=== PATIENT | female | born 1995 | race Caucasian/White ===

== ENCOUNTER → 2020-01-24 | Outpatient (CLI) | payer OTHER ==
--- NOTE | 2020-01-24 17:52 | US ---
EXAMINATION TYPE: Transabdominal DATE OF EXAM: 01/24/2020 4:55 PM COMPARISON: NONE CLINICAL HISTORY: Z36 confirm dates. Confirm dates. EXAM PERFORMED: Transvaginal (TV) and Transabdominal (TA) EXAM MEASUREMENTS: GESTATIONAL AGE / DATING Dates by LMP: (9 weeks/2 days) EDC: 08/26/2020 Dates by First Scan: No previous this is first scan Dates by Current Scan for: (8 weeks/5 days) EDC: 08/30/2020 MATERNAL ANATOMY Uterus: 9.7 x 7.1 x 5.0 cm Right Ovary: 3.2 x 1.7 x 1.2 cm Left Ovary: 3.2 x 2.5 x 1.9 cm Post CDS / Adnexa: no free fluid Presence of free fluid: no Presence of corpus luteal cyst: left ovary= 1.8 x 2.0 x 1.3 cm Presence of subchorionic bleed: size = 0.8 x 1.6 x 0.6 cm GESTATION / SURVEY CRL: 2.1 cm (8 weeks/5 days) MSD: seen, not measured Yolk Sac (normal less than 6mm): 3.9 mm Heart Rate: 171 bpm Rhythm: Normal IUP: Viable IUP Date of LMP: 11/20/2019, [id number] Beta HcG (if available): Not available at this time Single live IUP measuring 8 weeks 5 days. Fluid visualized in cervical canal. Subchorionic bleed vi sualized. Left corpus luteal cyst seen. IMPRESSION: 1. Single viable of 8 weeks 5 days. There is a subchorionic hemorrhage measuring 1.6 cm. In cidental note made of small amount of free fluid in the cervical canal which is nonspecific and shoul d be correlated clinically.
== END | disposition home or self-care (01) ==
LOC: RADUSWWP 16:24
PROVIDERS: ATTEND Obstetrics & Gynecology
DX: Z36.87 Encounter for antenatal screening for uncertain dates (principal); Z3A.08 8 weeks gestation of pregnancy
CPT/HCPCS: 76801; 76817

== ENCOUNTER 2020-08-11 21:15 | Outpatient (CLI) | payer OTHER ==
[2020-08-12 00:28] VITALS: BP 124/64; PULSE 90; RESP 18; TEMP 98.2
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
== END 2020-08-11 23:40 | disposition home or self-care (01) ==
LOC: FBPOP 21:15
PROVIDERS: ATTEND Obstetrics & Gynecology
DX: O75.89 Other specified complications of labor and delivery (principal); Z3A.38 38 weeks gestation of pregnancy
CPT/HCPCS: 59025; 86900; 86901; 86850; G0463; 99213

== ENCOUNTER 2020-08-27 08:42 | Outpatient (CLI) | payer OTHER ==
[2020-08-27 09:36] LABS: Amorphous Sediment,Urine Rare /hpf; Appearance,Urine Turbid (Clear); Bacteria,Urine Rare /hpf; Bilirubin,Urine Negative (Negative); Blood,Urine Negative (Negative); Color,Urine Yellow; Glucose,Urine (UA) Negative (Negative); Ketones,Urine Negative (Negative); Leukocyte Esterase,Urine Negative (Negative); Mucus,Urine Rare /hpf; Nitrite,Urine Negative (Negative); Protein,Urine Negative (Negative); RBC,Urine 1 /hpf (0-5); Specific Gravity,Urine 1.014 (1.001-1.035); Squamous Epithelial Cell,Urine 3 /hpf (0-4); Urobilinogen,Urine <2.0 mg/dL (<2.0); WBC,Urine 2 /hpf (0-5)
[2020-08-27 11:08] LABS: Basophils % (A) 0 %; Eosinophils % (A) 0 %; HCT 40.1 % (34.0-46.0); HGB 13.2 gm/dL (11.4-16.0); Lymphocytes # (A) 1.5 k/uL (1.0-4.8); Lymphocytes % (A) 12 %; MCH 28.6 pg (25.0-35.0); MCV 86.8 fL (80.0-100.0); Mean Platelet Volume 8.1; Monocytes # (A) 0.6 k/uL (0-1.0); Monocytes % (A) 5 %; Neutrophils # (A) 10.4 k/uL (1.3-7.7); Neutrophils % (A) 81 %; Platelet Count 246 k/uL (150-450); RBC 4.62 m/uL (3.80-5.40); RDW 13.9 % (11.5-15.5); WBC 12.7 k/uL (3.8-10.6)
[2020-08-27 11:21] LABS: Creatinine,Urine Random 102.1 mg/dL; Creatinine,Urine Random 104.2 mg/dL; Protein/Creatinine Ratio,Urine 0.088
[2020-08-27 11:23] LABS: ALT 40 U/L (4-34); AST 72 U/L (14-36); African American GFR (CKD) >90 (>60 ml/min/1.73 sqM); Blood Urea Nitrogen 7 mg/dL (7-17); LDH 469 U/L (313-618); Non-African American GFR(CKD) >90 (>60 ml/min/1.73 sqM); Uric Acid 3.8 mg/dL (3.7-7.4)
[2020-08-27 13:47] VITALS: BP 142/77; PULSE 87; RESP 16; TEMP 96.4
--- NOTE | 2020-08-28 09:08 | P.MSEPDOC ---
Presenting Problems - Arrival Data Date of Arrival on Unit: 08/27/20 Time of Arrival on Unit: 08:42 Mode of Transport: Ambulatory - Complaint OB-Reason for Admission/Chief Complaint: Pain, Unknown Comment: Abdominal pain. Medical History - Information : 2 Para: 0 Term: 0 : 0 Abortions: Spontaneous or Elective: 0 Number of Living Children: 0 - Gestational Age Gestational Age by ARIADNE (wks/days): 40 Weeks and 0 Days Review of Systems - Review of Systems Constitutional: No problems Breast: No problems ENT: No problems Cardiovascular: No problems Respiratory: No problems Gastrointestinal: No problems Genitourinary: No problems Musculoskeletal: No problems Neurological: No problems Skin: No problems Vital Signs - Temperature Temperature: 96.4 F Temperature Source: Temporal Artery Scan - Pulse Right Brachial Pulse Rate: 87 Pulse Assessment Method: Automatic Cuff - Respirations Respiratory Rate: 16 Oxygen Delivery Method: Room Air O2 Sat by Pulse Oximetry: 97 - Blood Pressure Right Arm Blood Pressure: 142/77 Blood Pressure Mean: 98 Blood Pressure Source: Automatic Cuff Medical Screen Scoring - Cervical Exam Dilation (cm): 2 Effacement (%): 50 Station: -2 Membranes: Intact - Assessment - Baby A Baseline FHR: 135 Heart Rate - NICHD Category: Category I (Normal) NST: Reactive Physician Notification - Physician Notified Physician Notified Date: 08/27/20 Physician Notified Time: 13:02 Physician: Caroline Phipps Order Received: Yes - Notification Comment Comment: Dr. Phipps in room again. Plan is for pt to go to office tomorrow for a BP check. and NST then plan for IOL on monday Maternal Triage Index - Non-Urgent/Priority 4 Non-Urgent Priority 4: Yes Criteria Met for Priority 4: Abdominal pain. Disposition - Disposition OB Disposition: Discharge to home Discharge Date: 08/27/20 Discharge Time: 13:14 I agree with the RN Medical Screening Exam: Yes Physician's MSE Comment: I discussed diagnosis of gestational hypertension with pt. and significant other. Advised that standard of care is to deliver if over 37 weeks. Advised that gestational hypertension can progress into preeclampsia or eclampsia sometimes fairly quickly. Pt. state the RUQ pain she came in with is currently gone. Pt. doesn't want to be induced if she doesn't need to. Advised that she does need to be delivered with this diagnosis. Offered to admit her today, observe overnight and induce in the morning, but patient declined. She has a to go to on Monday. She is willing to come into the office tomorrow for NST and BP check and agrees to be induced on Monday. She is advised to return to the hospital if she has any headache, blurred vision, epigastric pain, decreased movement, ROM, bleeding, or any other concern. Case reviewed; plan agreed upon as documented in EMR&OBIX.: Yes Diagnosis: GESTATIONAL HTN W/O SIGNIFICANT PROTEINURIA, THIRD TRIMESTER
== END 2020-08-27 13:14 | disposition home or self-care (01) ==
LOC: FBPOP 08:42 → UNDOADMIN 09:51 → 4FBP 09:51 → FBPOP 13:14
PROVIDERS: ATTEND Obstetrics & Gynecology
DX: O13.3 Gestational [pregnancy-induced] hypertension without significant proteinuria, third trimester (principal); Z3A.00 Weeks of gestation of pregnancy not specified
CPT/HCPCS: 59025; 82570; 84156; 82565; 83615; 84450; 84460; 84520; 84550; 85025; 81001; G0463; 99215

== ENCOUNTER 2020-08-30 06:00 | Inpatient (IN) | payer OTHER ==
--- NOTE | 2020-08-29 15:53 | P.HPOB ---
History of Present Illness H&P Date: 08/29/20 Chief Complaint: Gestational hypertension This is a 25 y.o. female, 2, para 0, with an estimated date of confinement of 08/26/2020, estimated gestational age of 40-4/7 weeks, who presents for induction of labor due to gestational hypertension. She was seen in triage on 08/27/2020 with complaints of right upper quadrant and epigastric pain and was found to have mildly elevated blood pressures. Her blood pressure did normalize with rest and her pain went away. Her urine protein and P/C ratios were negative, however, her liver enzymes were slightly elevated. I recommended induction at that time or at least the next day, but she declined. She said she would come to the office on 08/28/2020 for NST and blood pressure check, but did not show. She did consent to induction on 08/30/2020 when she was seen in triage. She has been feeling good movement and does feel irregular contractions. labs: Hepatitis B surface antigen-neg RPR-NR Rubella-immune Blood type-B neg Antibody screen-neg HIV-NR Hemoglobin-15.7 Random glucose-87 Quad screen-neg 1 hr. GTT-142, 3 hr. 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 Works as [employer]. Review of Systems Constitutional: Denies chills, Denies fever Eyes: denies blurred vision, denies pain Ears, nose, mouth and throat: Denies headache, Denies sore throat Cardiovascular: Denies chest pain, Denies shortness of breath Gastrointestinal: Reports abdominal pain (RUQ, epigastric, contractions) Genitourinary: Reports pelvic pain, Reports Musculoskeletal: Reports low back pain Integumentary: Denies pruritus, Denies rash Neurological: Denies numbness, Denies weakness Past Medical History Past Medical History: No Reported History History of Any Multi-Drug Resistant Organisms: None Reported Past Surgical History: No Surgical Hx Reported Past Anesthesia/Blood Transfusion Reactions: No Reported Reaction Past Psychological History: No Psychological Hx Reported Smoking Status: Never smoker Past Alcohol Use History: None Reported Past Drug Use History: Marijuana (None since ) - Past Family History Father Family Medical History: AFIB Medications and Allergies Home Medications Medication Instructions Recorded Confirmed Type No Known Home Medications 08/27/20 08/27/20 History Allergies Allergy/AdvReac Type Severity Reaction Status Date / Time venom-honey bee Allergy Swelling Verified 08/27/20 08:56 [bee venom (honey bee)] Exam Osteopathic Statement: *. No significant issues noted on an osteopathic structural exam other than those noted in the History and Physical/Consult. HEENT: within normal limits Heart: regular rate and rhythm Lungs: clear to auscultation bilaterally Abdomen: , currently non-tender heart tones: category I Contractions: irregular Cervix: 2 cm/80%/-2 Extremities: neg. Harvey's, tr. edema Assessment and Plan (1) 40 weeks gestation of Status: Acute Code(s): Z3A.40 - 40 WEEKS GESTATION OF SNOMED Code(s): 02104067 (2) Gestational [-induced] hypertension without significant proteinuria, third trimester Status: Acute Code(s): O13.3 - GESTATIONAL HTN W/O SIGNIFICANT PROTEINURIA, THIRD TRIMESTER SNOMED Code(s): 11049699 Plan: Proceed with oxytocin induction of labor. Will monitor blood pressures. Expectant management. Epidural anesthesia if desired.
[2020-08-30] MEDS ORDERED: CARBOPROST TROMETHAMINE 250 MCG/ML 1 ML AMP IM PRN (06:24)
[2020-08-30] MEDS ORDERED: LIDOCAINE 1% (10MG/ML) FOR IV START INTRADERMA PRN (06:24)
[2020-08-30] MEDS ORDERED: OXYTOCIN 30 UNITS/500 ML NS 30 UNIT in SALINE 1 500ML.BAG IV SCH ×2 (06:24→17:31)
[2020-08-30] MEDS ORDERED: LIDOCAINE 0.5% (PF) 5 MG/ML (50 ML SDV) SQ PRN (06:24)
[2020-08-30] MEDS ORDERED: OXYTOCIN 10 UNIT/ML 1 ML VIAL IM PRN (06:24)
[2020-08-30] MEDS ORDERED: TERBUTALINE 1 MG/ML VIAL SQ PRN (06:24)
[2020-08-30] MEDS ORDERED: METHYLERGONOVINE 0.2 MG/ML 1 ML AMP IM PRN (06:24)
[2020-08-30] MEDS: LACTATED RINGERS 1,000 ML IV SCH ×3 (06:40→16:01)
[2020-08-30 07:02] LABS: Basophils % (A) 0 %; Eosinophils # (A) 0.1 k/uL (0-0.7); Eosinophils % (A) 1 %; HCT 38.9 % (34.0-46.0); HGB 12.9 gm/dL (11.4-16.0); Lymphocytes # (A) 2.5 k/uL (1.0-4.8); Lymphocytes % (A) 20 %; MCH 28.7 pg (25.0-35.0); MCHC 33.1 g/dL (31.0-37.0); MCV 86.8 fL (80.0-100.0); Mean Platelet Volume 8.3; Monocytes # (A) 0.8 k/uL (0-1.0); Monocytes % (A) 7 %; Neutrophils # (A) 8.9 k/uL (1.3-7.7); Neutrophils % (A) 71 %; Platelet Count 247 k/uL (150-450); RBC 4.48 m/uL (3.80-5.40); WBC 12.6 k/uL (3.8-10.6)
[2020-08-30 08:27] LABS: Glucose,Urine (UA) Negative (Negative); Ketones,Urine Trace (Negative); Protein,Urine Trace (Negative)
[2020-08-30 10:19] LABS: Amphetamine Screen,Urine Not Detected (NotDetected); Barbiturate Screen,Urine Not Detected (NotDetected); Benzodiazepines Screen,Urine Not Detected (NotDetected); Cocaine Screen,Urine Not Detected (NotDetected); Methadone Screen, Urine Not Detected (NotDetected); Opiate Screen,Urine Not Detected (NotDetected); Oxycodone Screen, Urine Not Detected (NotDetected); Phencyclidine Screen,Urine Not Detected (NotDetected); Tricyclic Antidepressant,Urine Not Detected (NotDetected); Urn Cannabinoid Scrn Not Detected (NotDetected)
[2020-08-30] MEDS: BUTORPHANOL 1 MG/ML 1 ML VIAL IV PRN ×2 (11:11→13:02)
[2020-08-30] MEDS ORDERED: SODIUM CHLORIDE 0.9% 100 ML BAG ONE (13:23)
[2020-08-30] MEDS ORDERED: ROPIVACAINE 5MG/ML 20ML VIAL ONE (13:23)
[2020-08-30] MEDS ORDERED: fentaNYL (PF) 50 MCG/ML 5 ML AMP ONE (13:23)
[2020-08-30] MEDS ORDERED: ACETAMINOPHEN TAB 325 MG TAB PO PRN (17:31)
[2020-08-30] MEDS ORDERED: BENZOCAINE/MENTHOL SPRAY 1 GM/SPRAY AEROSOL TOPICAL PRN (17:31)
[2020-08-30] MEDS ORDERED: diphenhydrAMINE 50 MG CAP PO PRN (17:31)
[2020-08-30] MEDS ORDERED: HYDROCORTISONE 2.5% RECTAL CREAM 30 GM TUBE RECTAL PRN (17:31)
[2020-08-30] MEDS ORDERED: diphenhydrAMINE 50 MG/ML 1 ML VIAL IVP PRN ×2 (17:31)
[2020-08-30] MEDS ORDERED: SIMETHICONE 80 MG CHEWABLE PO PRN (17:31)
[2020-08-30] MEDS ORDERED: ZOLPIDEM 5 MG TAB PO PRN (17:31)
[2020-08-30] MEDS ORDERED: diphenhydrAMINE 25 MG CAP PO PRN (17:31)
[2020-08-30] MEDS ORDERED: LANOLIN CREAM 5 GM TUBE TOPICAL PRN (17:31)
--- NOTE | 2020-08-30 17:31 | P.PROBDLV ---
Vaginal Delivery Note - . Vaginal Delivery Note: The patient progressed to complete dilation after oxytocin induction of labor and artificial rupture of membranes with clear fluid noted. She did receive several doses of Stadol and then epidural. Once reaching complete, she began pushing. 's head came to a crown. With one further push, the 's head delivered across the perineum followed by the anterior shoulder. The was then placed on mother's abdomen. Nose and mouth were bulb suctioned. Cord was allowed to stop pulsating before it was clamped. Cord was clamped and cut. Infant was then allowed to be skin to skin with mother. A viable male was noted with scores of 8 at 1 minute and 9 at 5 minutes and infant weight is pending at this time. Placenta delivered shortly thereafter, intact, with a three-vessel cord. Uterus contracted fairly well after oxytocin was given and uterine massage was carried out. Inspection of the perineum revealed a second-degree perineal laceration. This area was anesthetized with 1% lidocaine and then sutured with 3-0 and 2-0 Vicryl suture in the usual multilayer fashion. Estimated blood loss was approximately 100 mL's. Both mother and are in stable condition.
[2020-08-30] MEDS: IBUPROFEN 600 MG TAB PO PRN (22:42)
[2020-08-30] MEDS: SENNOSIDES-DOCUSATE SODIUM 1 EACH TAB PO SCH (22:42)
[2020-08-30] MEDS ORDERED: Rhogam IMMUNE GLOBULIN 1,500 UNIT/1 ML IM ONE (22:44)
[2020-08-31 06:51] LABS: Basophils % (A) 0 %; Eosinophils # (A) 0.1 k/uL (0-0.7); Eosinophils % (A) 1 %; HCT 35.7 % (34.0-46.0); Lymphocytes % (A) 19 %; MCH 29.5 pg (25.0-35.0); MCHC 33.6 g/dL (31.0-37.0); MCV 87.8 fL (80.0-100.0); Mean Platelet Volume 8.4; Monocytes # (A) 0.8 k/uL (0-1.0); Monocytes % (A) 7 %; Neutrophils # (A) 7.7 k/uL (1.3-7.7); Neutrophils % (A) 71 %; Platelet Count 209 k/uL (150-450); RBC 4.07 m/uL (3.80-5.40); WBC 10.8 k/uL (3.8-10.6)
[2020-08-31 07:16] LABS: ALT 18 U/L (4-34); AST 19 U/L (14-36)
[2020-08-31] MEDS: IBUPROFEN 600 MG TAB PO PRN ×2 (08:29→14:26)
[2020-08-31] MEDS: SENNOSIDES-DOCUSATE SODIUM 1 EACH TAB PO SCH (08:29)
[2020-08-31 08:44] VITALS: RESP 16
--- NOTE | 2020-08-31 08:59 | P.DS ---
Providers Date of admission: 08/30/20 06:07 Expected date of discharge: 08/31/20 Attending physician: Caroline Phipps Primary care physician: Stated None - Discharge Diagnosis(es) (1) 40 weeks gestation of Current Visit: No Status: Acute (2) Gestational [-induced] hypertension without significant proteinuria, third trimester Current Visit: No Status: Acute Hospital Course: This is a [age] female 2 para 0 at 40-4/7 weeks who presented for induction of labor secondary to gestational hypertension and slightly elevated liver enzymes. She underwent oxytocin induction of labor and delivered vaginally a viable male infant with scores of 8 at 1 minute and 9 at 5 minutes and infant weight of 8 lbs. 9 oz. Her course has been essentially uncomplicated. Lochia is decreasing. She does complain of hemorrhoids. She is working on breast-feeding. Vital signs are stable. Abdomen is soft with fundus firm and nontender. Extremities show negative Homans. Impression is status post vaginal delivery day #1. Her liver enzymes are back to normal today. She will be discharged home today. Routine instructions are given. She will be given a prescription for ibuprofen and a breast pump. She is advised follow-up in the office in 6 weeks for check. She is advised to call the office if she has any further questions or concerns prior to her appointment time. Procedures: Oxytocin induction of labor Spontaneous vaginal delivery of a viable male infant on 08/30/2020 Patient Condition at Discharge: Stable Plan - Discharge Summary New Discharge Prescriptions: New Ibuprofen [Motrin] 600 mg PO Q6HR PRN #60 tab PRN Reason: Mild Pain (Scale 1 To 3) Discharge Medication List Ibuprofen [Motrin] 600 mg PO Q6HR PRN #60 tab 08/31/20 [Rx] Follow up Appointment(s)/Referral(s): Caroline Phipps DO [Doctor of Osteopathic Medicine] - 1 Week Activity/Diet/Wound Care/Special Instructions: Instructions 1. Do not begin any exercise program for 3 weeks. 2. Do not resume sexual relations for 3 weeks or longer if uncomfortable. 3. You may take tub baths or showers at any time. 4. You may use tampons if desired after 3 weeks. 5. Keep the area of episiotomy (stitches) clean and dry. 6. If you are not nursing, wear a good fitting, supportive bra during the day and limit fluid intake for at least 1 week to prevent breast engorgement. 7. Call the office, [phone], within the next week to make appointment for your 6 week checkup if it has not already been made. 8. Report any of the following occurrences to the doctor promptly: a. Heavy, excessive bleeding b. Chills, fever c. Burning or frequency of urination d. Pain or redness and breasts if nursing e. Increasing pain or swelling in episiotomy (stitches). In addition to the above instructions, the following additional should be followed: 1. No heavy lifting or straining (exercising) until after 6 week checkup. 2. Keep abdominal incision clean and dry: You may wear a dressing if more comfortable. 3. Make office appointment for 10 days after going home or as instructed by her doctor. Discharge Disposition: HOME SELF-CARE
[2020-08-31 16:26] VITALS: BP 124/82; PULSE 79; TEMP 97.6
== END 2020-08-31 17:30 | disposition home or self-care (01) | DRG 807 ==
LOC: 4FBP 06:07
PROVIDERS: ADMIT Obstetrics & Gynecology; ATTEND Obstetrics & Gynecology
PROC: 10E0XZZ Delivery of Products of Conception, External Approach (ICD-10-PCS; principal; 2020-08-30)
PROC: 0KQM0ZZ Repair Perineum Muscle, Open Approach (ICD-10-PCS; 2020-08-30)
DX: O13.4 Gestational [pregnancy-induced] hypertension without significant proteinuria, complicating childbirth (principal); Z37.0 Single live birth; O22.43 Hemorrhoids in pregnancy, third trimester; O70.1 Second degree perineal laceration during delivery; Z3A.40 40 weeks gestation of pregnancy
CPT/HCPCS: 80306; 81003; 84450; 84460; 85025; 85461; 86850; 86900; 86901

== ENCOUNTER 2020-09-02 00:55 | Observation (INO) | payer OTHER ==
[2020-09-02] MEDS ORDERED: ACETAMINOPHEN TAB 325 MG TAB PO PRN (07:55)
[2020-09-02] MEDS ORDERED: NALOXONE 0.4 MG/ML 1 ML VIAL IV PRN (07:55)
[2020-09-02] MEDS ORDERED: HYDROmorphone 1 MG/ML 1 ML SYRINGE IVP PRN (07:55)
[2020-09-02] MEDS ORDERED: SODIUM CHLORIDE 0.9% 1,000 ML IV SCH (08:00)
[2020-09-02 08:19] LABS: ALT 30 U/L (4-34); AST 60 U/L (14-36); African American GFR (CKD) >90 (>60 ml/min/1.73 sqM); Albumin 3.3 g/dL (3.5-5.0); Albumin/Globulin Ratio 1.2; Alkaline Phosphatase 209 U/L (38-126); Amylase 121 U/L (30-110); Anion Gap 8 mmol/L; Blood Urea Nitrogen 7 mg/dL (7-17); Calcium 9.2 mg/dL (8.4-10.2); Carbon Dioxide 26 mmol/L (22-30); Chloride 104 mmol/L (98-107); Globulin 2.7 g/dL; Glucose 107 mg/dL (74-99); Magnesium 1.8 mg/dL (1.6-2.3); Non-African American GFR(CKD) >90 (>60 ml/min/1.73 sqM); Potassium 4.1 mmol/L (3.5-5.1); Sodium 138 mmol/L (137-145); Total Bilirubin 0.9 mg/dL (0.2-1.3)
[2020-09-02 08:20] LABS: Lipase 2443 U/L (23-300)
[2020-09-02 08:29] LABS: Basophils % (A) 0 %; Eosinophils # (A) 0.2 k/uL (0-0.7); Eosinophils % (A) 2 %; HCT 40.6 % (34.0-46.0); HGB 13.3 gm/dL (11.4-16.0); Lymphocytes # (A) 1.8 k/uL (1.0-4.8); Lymphocytes % (A) 15 %; MCH 28.6 pg (25.0-35.0); MCHC 32.7 g/dL (31.0-37.0); MCV 87.6 fL (80.0-100.0); Mean Platelet Volume 7.3; Monocytes # (A) 0.8 k/uL (0-1.0); Monocytes % (A) 7 %; Neutrophils # (A) 8.8 k/uL (1.3-7.7); Neutrophils % (A) 74 %; Platelet Count 265 k/uL (150-450); RBC 4.64 m/uL (3.80-5.40); RDW 14.6 % (11.5-15.5); WBC 11.9 k/uL (3.8-10.6)
[2020-09-02 08:34] LABS: Appearance,Urine Cloudy (Clear); Bacteria,Urine Rare /hpf; Bilirubin,Urine Negative (Negative); Blood,Urine Large (Negative); Color,Urine Yellow; Glucose,Urine (UA) Negative (Negative); Ketones,Urine Negative (Negative); Leukocyte Esterase,Urine Large (Negative); Mucus,Urine Few /hpf; Nitrite,Urine Negative (Negative); PH, Urine 5.5 (5.0-8.0); Protein,Urine Trace (Negative); RBC,Urine 9 /hpf (0-5); Specific Gravity,Urine 1.021 (1.001-1.035); Squamous Epithelial Cell,Urine 7 /hpf (0-4); WBC,Urine 61 /hpf (0-5)
[2020-09-02 08:49] VITALS: RESP 16
--- NOTE | 2020-09-02 13:42 | CT ---
EXAM: CT Abdomen and Pelvis Without Intravenous Contrast CLINICAL HISTORY: Pt had vaginal delivery two days ago now having abdominal pain. TECHNIQUE: Axial computed tomography images of the abdomen and pelvis without intravenous contrast. CTDI is 29.07 mGy and DLP is 1690.2 mGy-cm. This CT exam was performed using one or more of the following dose reduction techniques: automated exposure control, adjustment of the mA and/or kV according to patient size, and/or use of iterative reconstruction technique. COMPARISON: No relevant prior studies available. FINDINGS: The lung bases are clear. Liver, gallbladder, spleen, adrenal glands, and pancreas are within normal limits. No hydronephrosis however, there is mild fullness of the bilateral collecting systems, which is to be expected in the recent period. Normal urinary bladder. There are blood products within the endometrial cavity, which may be expected in the setting of a recent vaginal delivery. Dedicated pelvic ultrasound is recommended to evaluate for vascular flow and exclude the possibility of retained products of conception. No acute diverticulitis. No small bowel obstruction. No free intraperitoneal air. Normal appendix. IMPRESSION: Blood products within the endometrial cavity, which may be expected in the setting of a recent vaginal delivery. Dedicated pelvic ultrasound is recommended to evaluate for vascular flow and exclude the possibility of retained products of conception.
--- NOTE | 2020-09-02 23:19 | P.HPIM ---
History of Present Illness H&P Date: 09/02/20 The patient was seen and evaluated in the ED on 09/02 @ 2:30 am. Delayed charting due to down-time. Please refer to paper chart. The patient is a 25-year-old female with no known PMH, 3 days with a vaginal delivery who presented to the emergency room with complaints of right upper quadrant epigastric discomfort. The patient reports that she initially started feeling right upper quadrant discomfort at 16 weeks gestation. Her subsystems engineer advised her that it was likely the baby kicking. She reported that the pain was achy, and intermittent, without any association with food. She reports that her pain would occur only a handful of times a week and she did not think much of it. She reports however that the pain acutely worsened roughly 10 days prior to presentation, and a week prior to her delivery. She reports being seen at her subsystems engineer's office and undergoing blood work which had revealed elevated liver enzymes. She was advised to undergo induced labor At that timewhich she declined and underwent a regular labor and delivery this past Monday, which was uneventful as per the patient. Patient reports that soon after her delivery, she continued having 9 out of 10 right upper quadrant abdominal discomfort, aching in nature, with radiation to the epigastric region and her back, which prompted her to come to the emergency room. At time of interview, the patient notes that her pain had improved significantly without intervention, currently at a 3 out of 10. she notes that her pain continues to be intermittent, with no association to food, occurring multiple times a day, lasting for minutes to hours at a time. She denied experiencing fever, chills, nausea, vomiting, diarrhea. Also denied cough, chest discomfort, shortness of breath. He denied headaches, weakness, numbness, tingling, dizziness. She underwent an extensive evaluation in the emergency room with laboratory evaluation showing lipase 2443, WBC count 11.9, hemoglobin 13.3, platelets 265, sodium 138, potassium 4.1, chloride 104, CO2 26, BUN 7, creatinine 0.56, AST 60, ALT 30, magnesium 1.8, alk phos 209, total bilirubin 0.9, and glucose 107. Review of systems: Pertinent positives and negatives as discussed in HPI, a complete review of systems was performed and all other systems are negative. Physical examination: General: non toxic, no distress, appears at stated age, morbidly obese Derm: no unusual rashes/lesions no unusual ecchymoses, warm, dry Head: atraumatic, normocephalic, symmetric Eyes: EOMI, no lid lag, anicteric sclera, pupils equal round reactive to light ENT: Nose and ears atraumatic, no thrush, no pharyngeal erythema Neck: No thyromegaly, no cervical lymphadenopathy, trachea midline, supple Mouth: no lip lesion, mucus membranes moist Cardiovascular: S1S2 reg, no murmur, positive posterior tibial pulse bilateral, no edema, capillary refill less than 2 seconds Lungs: CTA bilateral, no rhonchi, no rales , no accessory muscle use Abdominal: soft, nontender to palpation, no guarding, no appreciable organomegaly, normal bowel sounds Ext: no gross muscle atrophy, muscle strength 5 out of 5 in all 4 extremities grossly, no contractures, Neuro: CN II-XI grossly intact, light touch intact all 4 extremities, finger to nose within normal limits, Psych: Alert, oriented, appropriate affect Assessment/plan Acute pancreatitis, suspected secondary to gallstones -Continue with IV fluids -Pain control -Nothing by mouth for now -GI consult DVT prophylaxis -IPCD's The patient is admitted with an anticipated less than 2 midnight stay for evaluation of acute pancreatitis CODE STATUS: full code Discussed with: patient, Anticipated discharge date: in a.m. Anticipated discharge place: home Past Medical History Past Medical History: No Reported History Additional Past Medical History / Comment(s): Pancreatitis- 09/02/20. vagnial - 08/31/20 History of Any Multi-Drug Resistant Organisms: None Reported Past Surgical History: No Surgical Hx Reported, Adenoidectomy, Tonsillectomy Additional Past Surgical History / Comment(s): Tubs put in ears as an Past Anesthesia/Blood Transfusion Reactions: No Reported Reaction Smoking Status: Never smoker - Past Family History Father Family Medical History: AFIB Additional Family Medical History / Comment(s): Grandma has diabetes and hx of brain tumor Medications and Allergies Home Medications Medication Instructions Recorded Confirmed Type Acetaminophen Tab [Tylenol] 650 mg PO Q6HR PRN tab 09/02/20 Rx Pantoprazole [Protonix] 40 mg PO DAILY #30 tablet. 09/02/20 Rx Allergies Allergy/AdvReac Type Severity Reaction Status Date / Time venom-honey bee Allergy Swelling Verified 09/02/20 08:06 [bee venom (honey bee)] Physical Exam Vitals: Vital Signs Resp 09/02/20 08:00 16 Intake and Output 09/02/20 09/02/20 09/03/20 14:59 22:59 06:59 Other: Weight 139.706 kg Results CBC & Chem 7: 09/02/20 01:27 09/02/20 01:27 Labs: Abnormal Lab Results - Last 24 Hours (Table) 09/02/20 09/02/20 09/02/20 Range/Units 01:27 01:27 01:27 WBC 11.9 H (3.8-10.6) k/uL Neutrophils # 8.8 H (1.3-7.7) k/uL Glucose 107 H (74-99) mg/dL AST 60 H (14-36) U/L Alkaline Phosphatase 209 H (38-126) U/L Total Protein 6.0 L (6.3-8.2) g/dL Albumin 3.3 L (3.5-5.0) g/dL Amylase 121 H (30-110) U/L Lipase 2443 H (23-300) U/L Urine Appearance Cloudy H (Clear) Urine Protein Trace H (Negative) Urine Blood Large H (Negative) Ur Leukocyte Esterase Large H (Negative) Urine RBC 9 H (0-5) /hpf Urine WBC 61 H (0-5) /hpf Ur Squamous Epith Cells 7 H (0-4) /hpf Urine Bacteria Rare H (None) /hpf Urine Mucus Few H (None) /hpf Thrombosis Risk Factor Assmnt - Choose All That Apply Any of the Below Risk Factors Present?: Yes Each Factor Represents 1 point: Obesity (BMI >25) Other Risk Factors: No Other congenital or acquired thrombophilia - If yes, enter type in comment: No Thrombosis Risk Factor Assessment Total Risk Factor Score: 1 Thrombosis Risk Factor Assessment Level: Low Risk
--- NOTE | 2020-09-03 11:23 | P.DS ---
Providers Date of admission: 09/02/20 02:54 Expected date of discharge: 09/03/20 Attending physician: Graciela Urias MD Primary care physician: Stated None Hospital Course: The patient is a 25-year-old female with no known PMH, 3 days with a vaginal delivery who presented to the emergency room with complaints of right upper quadrant epigastric discomfort. At time of initial interview, the patient notes that her pain had improved significantly without intervention, currently at a 3 out of 10. She underwent an extensive evaluation in the emergency room with laboratory evaluation showing lipase 2443, WBC count 11.9, hemoglobin 13.3, platelets 265, sodium 138, potassium 4.1, chloride 104, CO2 26, BUN 7, creatinine 0.56, AST 60, ALT 30, magnesium 1.8, alk phos 209, total bilirubin 0.9, and glucose 107. Acute pancreatitis Retained Products of Conception -Patient was started on IVF, but quickly tolerated regular diet without any further pain or nausea. CT A/P showed no evidence of pancreatitis, but did demonstrate findings of possible retained products of conception s/p vaginal delivery. Patient expressed wish to go home given she no longer felt symptomatic and was discharged after one night. She was instructed to follow up with her mortgage manager physician within a week to follow up regarding CT imaging findings. Assessment: Gen: awake, alert HEENT: normocephalic, atraumatic, good hearing acuity, moist mucous membranes Resp: good air exchange, breathing comfortably with no accessory muscle use CVS: good distal perfusion x 4, GI: soft, NTTP, ND : no SPT, no CVAT, lua catheter not present MSK: no pitting edema, no clubbing Neuro: non-focal, moving all extremities Psych: cooperative, euthymic mood Plan - Discharge Summary New Discharge Prescriptions: New Pantoprazole [Protonix] 40 mg PO DAILY #30 tablet. Acetaminophen Tab [Tylenol] 650 mg PO Q6HR PRN tab PRN Reason: Mild Pain Or Fever > 100.5 Discontinued Ibuprofen [Motrin] 600 mg PO Q6HR PRN #60 tab PRN Reason: Mild Pain (Scale 1 To 3) Docusate [Colace] 100 mg PO DAILY Discharge Medication List Acetaminophen Tab [Tylenol] 650 mg PO Q6HR PRN tab 09/02/20 [Rx] Pantoprazole [Protonix] 40 mg PO DAILY #30 tablet. 09/02/20 [Rx] Follow up Appointment(s)/Referral(s): Caroline Phipps DO [Doctor of Osteopathic Medicine] - 1 Week Patient Instructions/Handouts: Pancreatitis (DC), Low Fat Diet (DC), Mediterranean Diet (DC) Activity/Diet/Wound Care/Special Instructions: Need to follow up with Production Staff Worker for retained endometrial blood products on CT scan of abdomen/pelvis within 1 week. Discharge Disposition: HOME SELF-CARE
== END 2020-09-02 12:13 | disposition home or self-care (01) ==
LOC: EC 00:55 → 6NMEDSUR 02:54
PROVIDERS: ADMIT Internal Medicine; ATTEND Internal Medicine
DX: K85.90 Acute pancreatitis without necrosis or infection, unspecified (principal); R74.8 Abnormal levels of other serum enzymes; E66.01 Morbid (severe) obesity due to excess calories; Z68.25 Body mass index [BMI] 25.0-25.9, adult; Z79.899 Other long term (current) drug therapy; Z91.030 Bee allergy status; Z83.3 Family history of diabetes mellitus; Z82.49 Family history of ischemic heart disease and other diseases of the circulatory system
CPT/HCPCS: 99285; 80053; 82150; 83605; 83690; 83735; 85025; 81001; 74176; G0378

== ENCOUNTER 2020-10-17 04:40 | Emergency (ER) | payer OTHER ==
[2020-10-17] MEDS ORDERED: ONDANSETRON 4 MG/2 ML VIAL IVP STA (05:20)
[2020-10-17] MEDS ORDERED: HYDROmorphone 1 MG/ML 1 ML SYRINGE IVP STA (05:20)
[2020-10-17] MEDS ORDERED: SODIUM CHLORIDE 0.9% 1,000 ML IV ONE (05:20)
--- NOTE | 2020-10-17 05:35 | ED ---
Abdominal Pain HPI - General Chief Complaint: Abdominal Pain Stated Complaint: ABD Pain Time Seen by Provider: 10/17/20 04:55 Source: patient Mode of arrival: wheelchair Limitations: no limitations - History of Present Illness Initial Comments: This patient is 25-year-old woman who presents with right upper quadrant abdominal pain. The patient had onset of pain approximate 4 hours ago. She indicates severe aching pain radiating to her back. There has been nausea and vomiting. Patient is also diaphoretic. She has not noted fever. No change in bowel movements or urination. The patient did have recent vaginal delivery in end of August. Following that she had an episode of pancreatitis and states that this pain is a bit similar. MD Complaint: abdominal pain Onset/Timin -: hour(s) Location: RUQ Radiation: back Migration to: no migration Severity: severe Quality: aching Consistency: constant Improves With: nothing Worsens With: nothing Associated Symptoms: nausea, vomiting - Related Data Previous Rx's Medication Instructions Recorded Acetaminophen Tab [Tylenol] 650 mg PO Q6HR PRN tab 09/02/20 Pantoprazole [Protonix] 40 mg PO DAILY #30 tablet. 09/02/20 Allergies Allergy/AdvReac Type Severity Reaction Status Date / Time venom-honey bee Allergy Swelling Verified 10/17/20 04:50 [bee venom (honey bee)] Review of Systems ROS Statement: Those systems with pertinent positive or pertinent negative responses have been documented in the HPI. ROS Other: All systems not noted in ROS Statement are negative. Constitutional: Denies: fever, chills Respiratory: Denies: cough, dyspnea Cardiovascular: Denies: chest pain, palpitations, edema Gastrointestinal: Reports: abdominal pain, nausea, vomiting. Denies: diarrhea, melena, hematochezia Genitourinary: Denies: dysuria, hematuria Musculoskeletal: Denies: back pain Skin: Denies: rash Neurological: Denies: headache, weakness, numbness Past Medical History Past Medical History: No Reported History Additional Past Medical History / Comment(s): Pancreatitis- 09/02/20. vagnial - 08/31/20 History of Any Multi-Drug Resistant Organisms: None Reported Past Surgical History: No Surgical Hx Reported, Adenoidectomy, Tonsillectomy Additional Past Surgical History / Comment(s): Tubs put in ears as an infant Past Anesthesia/Blood Transfusion Reactions: No Reported Reaction Past Psychological History: No Psychological Hx Reported, ADD/ADHD, Anxiety, Depression Smoking Status: Never smoker Past Alcohol Use History: None Reported Past Drug Use History: None Reported - Past Family History Father Family Medical History: AFIB Additional Family Medical History / Comment(s): Grandma has diabetes and hx of brain tumor General Exam Limitations: no limitations General appearance: alert, in no apparent distress Head exam: Present: atraumatic, normocephalic Eye exam: Present: normal appearance. Absent: scleral icterus, conjunctival injection ENT exam: Present: normal oropharynx Neck exam: Present: normal inspection Respiratory exam: Present: normal lung sounds bilaterally. Absent: respiratory distress, wheezes, rales, rhonchi, stridor, accessory muscle use Cardiovascular Exam: Present: regular rate, normal rhythm, normal heart sounds. Absent: systolic murmur, diastolic murmur, rubs, gallop GI/Abdominal exam: Present: soft, tenderness, guarding. Absent: distended, rebound, rigid, mass, pulsatile mass, hernia Extremities exam: Present: normal inspection, normal capillary refill. Absent: pedal edema, calf tenderness Back exam: Present: normal inspection. Absent: CVA tenderness (R), CVA tenderness (L) Neurological exam: Present: alert Skin exam: Present: warm, intact, normal color, diaphoretic. Absent: rash Course Vital Signs 10/17/20 10/17/20 04:44 07:00 Temperature 98.3 F 98.7 F Pulse Rate 70 65 Respiratory 22 20 Rate Blood Pressure 124/87 119/81 O2 Sat by Pulse 97 96 Oximetry Medical Decision Making - Lab Data Result diagrams: 10/17/20 05:30 10/17/20 05:30 Lab Results 10/17/20 10/17/20 Range/Units 05:30 05:30 WBC 15.5 H (3.8-10.6) k/uL RBC 5.67 H (3.80-5.40) m/uL Hgb 16.8 H D (11.4-16.0) gm/dL Hct 48.1 H (34.0-46.0) % MCV 84.7 (80.0-100.0) fL MCH 29.6 (25.0-35.0) pg MCHC 34.9 (31.0-37.0) g/dL RDW 14.2 (11.5-15.5) % Plt Count 230 (150-450) k/uL MPV 7.7 Neutrophils % 84 % Lymphocytes % 9 % Monocytes % 6 % Eosinophils % 0 % Basophils % 0 % Neutrophils # 13.0 H (1.3-7.7) k/uL Lymphocytes # 1.4 (1.0-4.8) k/uL Monocytes # 0.9 (0-1.0) k/uL Eosinophils # 0.1 (0-0.7) k/uL Basophils # 0.0 (0-0.2) k/uL Sodium 140 (137-145) mmol/L Potassium 4.2 (3.5-5.1) mmol/L Chloride 104 (98-107) mmol/L Carbon Dioxide 24 (22-30) mmol/L Anion Gap 12 mmol/L BUN 11 (7-17) mg/dL Creatinine 0.77 (0.52-1.04) mg/dL Est GFR (CKD-EPI)AfAm >90 (>60 ml/min/1.73 sqM) Est GFR (CKD-EPI)NonAf >90 (>60 ml/min/1.73 sqM) Glucose 130 H (74-99) mg/dL Calcium 9.9 (8.4-10.2) mg/dL Total Bilirubin 0.7 (0.2-1.3) mg/dL AST 88 H (14-36) U/L ALT 95 H (4-34) U/L Alkaline Phosphatase 159 H (38-126) U/L Total Protein 7.1 (6.3-8.2) g/dL Albumin 4.2 (3.5-5.0) g/dL Amylase 55 (30-110) U/L Lipase 122 (23-300) U/L Disposition Clinical Impression: Biliary colic Disposition: HOME SELF-CARE Condition: Good Instructions (If sedation given, give patient instructions): Biliary Colic (ED) Is patient prescribed a controlled substance at d/c from ED?: No Referrals: None,Stated [Primary Care Provider] - 1-2 days Reji Gonzalez MD [Medical Doctor] - 1-2 days
[2020-10-17 05:47] LABS: Basophils % (A) 0 %; Eosinophils # (A) 0.1 k/uL (0-0.7); Eosinophils % (A) 0 %; HCT 48.1 % (34.0-46.0); Lymphocytes # (A) 1.4 k/uL (1.0-4.8); Lymphocytes % (A) 9 %; MCH 29.6 pg (25.0-35.0); MCHC 34.9 g/dL (31.0-37.0); MCV 84.7 fL (80.0-100.0); Mean Platelet Volume 7.7; Monocytes # (A) 0.9 k/uL (0-1.0); Monocytes % (A) 6 %; Neutrophils % (A) 84 %; Platelet Count 230 k/uL (150-450); RBC 5.67 m/uL (3.80-5.40); RDW 14.2 % (11.5-15.5); WBC 15.5 k/uL (3.8-10.6)
[2020-10-17 05:59] LABS: ALT 95 U/L (4-34); AST 88 U/L (14-36); African American GFR (CKD) >90 (>60 ml/min/1.73 sqM); Albumin 4.2 g/dL (3.5-5.0); Alkaline Phosphatase 159 U/L (38-126); Amylase 55 U/L (30-110); Anion Gap 12 mmol/L; Blood Urea Nitrogen 11 mg/dL (7-17); Calcium 9.9 mg/dL (8.4-10.2); Carbon Dioxide 24 mmol/L (22-30); Chloride 104 mmol/L (98-107); Glucose 130 mg/dL (74-99); Lipase 122 U/L (23-300); Non-African American GFR(CKD) >90 (>60 ml/min/1.73 sqM); Potassium 4.2 mmol/L (3.5-5.1); Sodium 140 mmol/L (137-145); Total Bilirubin 0.7 mg/dL (0.2-1.3); Total Protein 7.1 g/dL (6.3-8.2)
[2020-10-17 06:13] LABS: HGB 16.8 gm/dL (11.4-16.0)
[2020-10-17 07:01] VITALS: BP 119/81; PULSE 65; RESP 20; TEMP 98.7
--- NOTE | 2020-10-17 07:40 | US ---
EXAMINATION TYPE: US abdomen limited DATE OF EXAM: 10/17/2020 COMPARISON: CT September 02, 2020 CLINICAL HISTORY: attention RUQ. RUQ pain. EXAM MEASUREMENTS: Liver Length: 18.0 cm Gallbladder Wall: 0.2 cm CBD: 0.4 cm Right Kidney: 10.8 x 5.3 x 4.3 cm Pancreas: Body and tail obscured by bowel gas Liver: Upper limits of normal in size Gallbladder: Multiple mobile echogenic foci Evidence for sonographic Romo's sign: neg CBD: wnl Right Kidney: No hydronephrosis or masses seen Suboptimal evaluation of pancreas on initial images. Visualized portion of the liver shows no worriso me intrahepatic mass or ductal dilatation. Gallbladder shows multiple small shadowing mobile gallston es. No pericholecystic fluid or abnormal gallbladder wall thickening. Sonographic Romo sign negativ e. No right-sided hydronephrosis. IMPRESSION: Multiple shadowing mobile gallstones without secondary ultrasound evidence for acute chol ecystitis.
== END 2020-10-17 08:18 | disposition home or self-care (01) ==
LOC: EC 04:40
DX: K80.70 Calculus of gallbladder and bile duct without cholecystitis without obstruction (principal); R61 Generalized hyperhidrosis; Z91.030 Bee allergy status
CPT/HCPCS: 99284; 96374; 96375; 96361; 36415; 80053; 82150; 83690; 85025; 76705; J2405; J1170

== ENCOUNTER 2020-10-29 05:01 | Emergency (ER) | payer OTHER ==
[2020-10-29 05:07] VITALS: TEMP 98.3
[2020-10-29] MEDS ORDERED: ONDANSETRON 4 MG/2 ML VIAL IVP STA (05:42)
[2020-10-29] MEDS ORDERED: SODIUM CHLORIDE 0.9% 1,000 ML IV ONE (05:42)
[2020-10-29] MEDS ORDERED: HYDROmorphone 1 MG/ML 1 ML SYRINGE IVP STA (05:42)
[2020-10-29 05:45] LABS: Basophils # (A) 0.1 k/uL (0-0.2); Basophils % (A) 1 %; Eosinophils # (A) 0.1 k/uL (0-0.7); Eosinophils % (A) 1 %; HCT 47.2 % (34.0-46.0); HGB 15.6 gm/dL (11.4-16.0); Lymphocytes % (A) 16 %; MCH 28.5 pg (25.0-35.0); MCV 86.3 fL (80.0-100.0); Mean Platelet Volume 7.8; Monocytes % (A) 8 %; Neutrophils # (A) 9.1 k/uL (1.3-7.7); Neutrophils % (A) 73 %; Platelet Count 237 k/uL (150-450); RBC 5.48 m/uL (3.80-5.40); RDW 14.2 % (11.5-15.5); WBC 12.6 k/uL (3.8-10.6)
[2020-10-29 05:58] LABS: ALT 98 U/L (4-34); AST 108 U/L (14-36); African American GFR (CKD) >90 (>60 ml/min/1.73 sqM); Albumin 4.1 g/dL (3.5-5.0); Alkaline Phosphatase 160 U/L (38-126); Amylase 58 U/L (30-110); Anion Gap 8 mmol/L; Blood Urea Nitrogen 14 mg/dL (7-17); Calcium 9.5 mg/dL (8.4-10.2); Carbon Dioxide 25 mmol/L (22-30); Chloride 106 mmol/L (98-107); Glucose 117 mg/dL (74-99); Lipase 190 U/L (23-300); Non-African American GFR(CKD) >90 (>60 ml/min/1.73 sqM); Potassium 3.9 mmol/L (3.5-5.1); Sodium 139 mmol/L (137-145); Total Bilirubin 0.7 mg/dL (0.2-1.3); Total Protein 6.9 g/dL (6.3-8.2)
[2020-10-29 06:04] LABS: Amorphous Sediment,Urine Rare /hpf; Appearance,Urine Turbid (Clear); Bacteria,Urine Few /hpf; Bilirubin,Urine Negative (Negative); Blood,Urine Negative (Negative); Color,Urine Yellow; Glucose,Urine (UA) Negative (Negative); Ketones,Urine Negative (Negative); Leukocyte Esterase,Urine Large (Negative); Mucus,Urine Few /hpf; Nitrite,Urine Negative (Negative); PH, Urine 5.5 (5.0-8.0); Protein,Urine 1+ (Negative); RBC,Urine 3 /hpf (0-5); Specific Gravity,Urine 1.028 (1.001-1.035); Squamous Epithelial Cell,Urine 48 /hpf (0-4); WBC,Urine 36 /hpf (0-5)
[2020-10-29] MEDS ORDERED: HYDROmorphone 0.5 MG/0.5 ML SYRINGE IVP STA (06:30)
[2020-10-29 06:59] VITALS: BP 135/74; PULSE 72; RESP 19
--- NOTE | 2020-10-29 07:18 | ED ---
Abdominal Pain HPI - General Chief Complaint: Abdominal Pain Stated Complaint: Abd Pain Time Seen by Provider: 10/29/20 05:33 Source: patient Mode of arrival: wheelchair Limitations: no limitations - History of Present Illness MD Complaint: abdominal pain -: hour(s) Location: RUQ, epigastric Radiation: back Severity: severe Quality: aching, sharp Consistency: constant Improves With: nothing Worsens With: nothing Associated Symptoms: nausea, vomiting - Related Data Previous Rx's Medication Instructions Recorded Acetaminophen Tab [Tylenol] 650 mg PO Q6HR PRN tab 09/02/20 Pantoprazole [Protonix] 40 mg PO DAILY #30 tablet. 09/02/20 Allergies Allergy/AdvReac Type Severity Reaction Status Date / Time venom-honey bee Allergy Swelling Verified 10/29/20 05:07 [bee venom (honey bee)] Review of Systems ROS Statement: Those systems with pertinent positive or pertinent negative responses have been documented in the HPI. ROS Other: All systems not noted in ROS Statement are negative. Constitutional: Denies: fever, chills Respiratory: Denies: cough, dyspnea Cardiovascular: Denies: chest pain, palpitations Gastrointestinal: Reports: abdominal pain, nausea, vomiting. Denies: diarrhea, constipation, hematemesis, melena, hematochezia Genitourinary: Denies: dysuria, frequency, hematuria Musculoskeletal: Denies: back pain Skin: Denies: rash Neurological: Denies: headache, weakness Past Medical History Past Medical History: No Reported History Additional Past Medical History / Comment(s): Pancreatitis- 09/02/20. vagnial - 08/31/20 History of Any Multi-Drug Resistant Organisms: None Reported Past Surgical History: Adenoidectomy, Tonsillectomy Additional Past Surgical History / Comment(s): Tubs put in ears as an Past Anesthesia/Blood Transfusion Reactions: No Reported Reaction Past Psychological History: No Psychological Hx Reported, ADD/ADHD, Anxiety, Depression Smoking Status: Never smoker Past Alcohol Use History: None Reported Past Drug Use History: None Reported - Past Family History Father Family Medical History: AFIB Additional Family Medical History / Comment(s): Grandma has diabetes and hx of brain tumor General Exam Limitations: no limitations General appearance: alert, in no apparent distress Head exam: Present: atraumatic, normocephalic Eye exam: Present: normal appearance. Absent: scleral icterus, conjunctival injection Neck exam: Present: normal inspection Respiratory exam: Present: normal lung sounds bilaterally. Absent: respiratory distress, wheezes, rales, rhonchi, stridor Cardiovascular Exam: Present: regular rate, normal rhythm, normal heart sounds. Absent: systolic murmur, diastolic murmur, rubs, gallop GI/Abdominal exam: Present: soft. Absent: distended, tenderness, guarding, rebound, rigid, mass Extremities exam: Present: normal inspection, normal capillary refill. Absent: pedal edema, calf tenderness Back exam: Present: normal inspection. Absent: CVA tenderness (R), CVA tenderness (L) Neurological exam: Present: alert Skin exam: Present: warm, dry, intact, normal color. Absent: rash Course Vital Signs 10/29/20 10/29/20 10/29/20 05:05 06:58 07:44 Temperature 98.3 F 98.3 F Pulse Rate 78 72 72 Respiratory 20 19 19 Rate Blood Pressure 129/85 135/74 135/74 O2 Sat by Pulse 98 98 98 Oximetry Medical Decision Making - Medical Decision Making Patient is 25-year-old woman who presents with what seems consistent with biliary colic. She has had good relief following treatment here and would like to go home and follow-up for further care. Discussed return parameters. - Lab Data Result diagrams: 10/29/20 05:35 10/29/20 05:35 Lab Results 10/29/20 10/29/20 10/29/20 Range/Units 05:35 05:35 05:35 WBC 12.6 H (3.8-10.6) k/uL RBC 5.48 H (3.80-5.40) m/uL Hgb 15.6 (11.4-16.0) gm/dL Hct 47.2 H (34.0-46.0) % MCV 86.3 (80.0-100.0) fL MCH 28.5 (25.0-35.0) pg MCHC 33.0 (31.0-37.0) g/dL RDW 14.2 (11.5-15.5) % Plt Count 237 (150-450) k/uL MPV 7.8 Neutrophils % 73 % Lymphocytes % 16 % Monocytes % 8 % Eosinophils % 1 % Basophils % 1 % Neutrophils # 9.1 H (1.3-7.7) k/uL Lymphocytes # 2.0 (1.0-4.8) k/uL Monocytes # 1.0 (0-1.0) k/uL Eosinophils # 0.1 (0-0.7) k/uL Basophils # 0.1 (0-0.2) k/uL Sodium 139 (137-145) mmol/L Potassium 3.9 (3.5-5.1) mmol/L Chloride 106 (98-107) mmol/L Carbon Dioxide 25 (22-30) mmol/L Anion Gap 8 mmol/L BUN 14 (7-17) mg/dL Creatinine 0.82 (0.52-1.04) mg/dL Est GFR (CKD-EPI)AfAm >90 (>60 ml/min/1.73 sqM) Est GFR (CKD-EPI)NonAf >90 (>60 ml/min/1.73 sqM) Glucose 117 H (74-99) mg/dL Calcium 9.5 (8.4-10.2) mg/dL Total Bilirubin 0.7 (0.2-1.3) mg/dL AST 108 H (14-36) U/L ALT 98 H (4-34) U/L Alkaline Phosphatase 160 H (38-126) U/L Total Protein 6.9 (6.3-8.2) g/dL Albumin 4.1 (3.5-5.0) g/dL Amylase 58 (30-110) U/L Lipase 190 (23-300) U/L Urine Color Yellow Urine Appearance Turbid H (Clear) Urine pH 5.5 (5.0-8.0) Ur Specific [place] 1.028 (1.001-1.035) Urine Protein 1+ H (Negative) Urine Glucose (UA) Negative (Negative) Urine Ketones Negative (Negative) Urine Blood Negative (Negative) Urine Nitrite Negative (Negative) Urine Bilirubin Negative (Negative) Urine Urobilinogen 2.0 (<2.0) mg/dL Ur Leukocyte Esterase Large H (Negative) Urine RBC 3 (0-5) /hpf Urine WBC 36 H (0-5) /hpf Ur Squamous Epith Cells 48 H (0-4) /hpf Amorphous Sediment Rare H (None) /hpf Urine Bacteria Few H (None) /hpf Urine Mucus Few H (None) /hpf Disposition Clinical Impression: Biliary colic Disposition: HOME SELF-CARE Condition: Good Instructions (If sedation given, give patient instructions): Biliary Colic (ED) Is patient prescribed a controlled substance at d/c from ED?: No Referrals: Raymon Ferguson DO [Primary Care Provider] - 1-2 days Ester Ocampo MD [STAFF PHYSICIAN] - 1-2 days
== END 2020-10-29 07:50 | disposition home or self-care (01) ==
LOC: EC 05:01
DX: K80.50 Calculus of bile duct without cholangitis or cholecystitis without obstruction (principal); Z91.030 Bee allergy status
CPT/HCPCS: 36415; 80053; 82150; 83690; 85025; 81001; 87086; 99284; 96361; 96374; 96375; 96376; J2405; J1170 ×2

== ENCOUNTER 2020-12-17 01:54 | Emergency (ER) | payer OTHER ==
[2020-12-17 02:00] VITALS: PULSE 89; RESP 20; TEMP 98
[2020-12-17] MEDS ORDERED: SODIUM CHLORIDE 0.9% 1,000 ML IV STA (02:29)
--- NOTE | 2020-12-17 02:31 | ED ---
Abdominal Pain HPI - General Chief Complaint: Abdominal Pain Stated Complaint: Flank Pain Time Seen by Provider: 12/17/20 02:29 Source: patient, RN notes reviewed, old records reviewed Mode of arrival: ambulatory Limitations: no limitations - History of Present Illness Initial Comments: Karley is a 25 female of known gallbladder disease, patient presents for pain control, knows that she needs her gallbladder out. No recent surgeries, no other complaints. Patient states her gallbladder is causing her significant and severe pain and is here for pain control MD Complaint: abdominal pain -: days(s) Location: RUQ Radiation: RUQ Migration to: RUQ, suprapubic Severity scale (1-10): 4 Quality: aching Consistency: constant Improves With: nothing Worsens With: nothing Context: other (none) Associated Symptoms: nausea, vomiting Treatments Prior to Arrival: other (none) - Related Data Previous Rx's Medication Instructions Recorded Acetaminophen Tab [Tylenol] 650 mg PO Q6HR PRN tab 09/02/20 Pantoprazole [Protonix] 40 mg PO DAILY #30 tablet. 09/02/20 Allergies Allergy/AdvReac Type Severity Reaction Status Date / Time venom-honey bee Allergy Swelling Verified 12/17/20 02:00 [bee venom (honey bee)] Review of Systems ROS Statement: Those systems with pertinent positive or pertinent negative responses have been documented in the HPI. ROS Other: All systems not noted in ROS Statement are negative. Past Medical History Past Medical History: No Reported History Additional Past Medical History / Comment(s): Pancreatitis- 09/02/20. vagnial - 08/31/20 History of Any Multi-Drug Resistant Organisms: None Reported Past Surgical History: Adenoidectomy, Tonsillectomy Additional Past Surgical History / Comment(s): Tubs put in ears as an Past Anesthesia/Blood Transfusion Reactions: No Reported Reaction Past Psychological History: No Psychological Hx Reported, ADD/ADHD, Anxiety, Depression Smoking Status: Never smoker Past Alcohol Use History: None Reported Past Drug Use History: None Reported - Past Family History Father Family Medical History: AFIB Additional Family Medical History / Comment(s): Grandma has diabetes and hx of brain tumor General Exam Limitations: no limitations General appearance: alert, in no apparent distress Head exam: Present: atraumatic, normocephalic, normal inspection Eye exam: Present: normal appearance, PERRL, EOMI. Absent: scleral icterus, conjunctival injection, periorbital swelling ENT exam: Present: normal exam, mucous membranes moist Neck exam: Present: normal inspection. Absent: tenderness, meningismus, lymphadenopathy Respiratory exam: Present: normal lung sounds bilaterally. Absent: respiratory distress, wheezes, rales, rhonchi, stridor Cardiovascular Exam: Present: regular rate, normal rhythm, normal heart sounds. Absent: systolic murmur, diastolic murmur, rubs, gallop, clicks GI/Abdominal exam: Present: soft, normal bowel sounds. Absent: distended, tenderness, guarding, rebound, rigid Extremities exam: Present: normal inspection, full ROM, normal capillary refill. Absent: tenderness, pedal edema, joint swelling, calf tenderness Back exam: Present: normal inspection Neurological exam: Present: alert, oriented X3, CN II-XII intact Psychiatric exam: Present: normal affect, normal mood Skin exam: Present: warm, dry, intact, normal color. Absent: rash Course Vital Signs 12/17/20 12/17/20 01:58 03:31 Temperature 98.0 F 98.0 F Pulse Rate 89 89 Respiratory 20 20 Rate Blood Pressure 131/81 123/81 O2 Sat by Pulse 99 99 Oximetry - Reevaluation(s) Reevaluation #1: Medical record is reviewed Patient symptoms are improved here in the emergency department Patient is informed of results and questions are answered Medical Decision Making - Medical Decision Making 25 female to the ER for evaluation of gallbladder pain. Gallbladder,colic. Patient will continue follow-up for gallbladder treatment. Disposition Clinical Impression: Abdominal pain, Biliary colic Disposition: HOME SELF-CARE Condition: Good Instructions (If sedation given, give patient instructions): Biliary Colic (ED), Abdominal Pain (ED) Is patient prescribed a controlled substance at d/c from ED?: No Referrals: Raymon Ferguson DO [Primary Care Provider] - 1-2 days
[2020-12-17] MEDS ORDERED: HYDROmorphone 1 MG/ML 1 ML SYRINGE IM STA (02:54)
[2020-12-17] MEDS ORDERED: IBUPROFEN 800 MG TAB PO STA (02:54)
[2020-12-17] MEDS ORDERED: PROCHLORPERAZINE 10 MG TAB PO STA (02:55)
[2020-12-17 03:32] VITALS: BP 123/81
== END 2020-12-17 03:33 | disposition home or self-care (01) ==
LOC: EC 01:54
DX: K80.50 Calculus of bile duct without cholangitis or cholecystitis without obstruction (principal); Z91.018 Allergy to other foods
CPT/HCPCS: 99283; 96372; S0183; J1170

== ENCOUNTER 2021-01-04 10:23 | Emergency (ER) | payer OTHER ==
[2021-01-04 12:04] VITALS: TEMP 98
[2021-01-04] MEDS ORDERED: SODIUM CHLORIDE 0.9% 1,000 ML IV STA (13:46)
[2021-01-04] MEDS ORDERED: KETOROLAC 30 MG/ML 1 ML VIAL IVP STA (13:46)
[2021-01-04] MEDS ORDERED: ONDANSETRON 4 MG/2 ML VIAL IVP STA (13:46)
[2021-01-04 14:44] LABS: Basophils % (A) 0 %; Eosinophils # (A) 0.1 k/uL (0-0.7); Eosinophils % (A) 0 %; HCT 46.1 % (34.0-46.0); HGB 16.4 gm/dL (11.4-16.0); Lymphocytes # (A) 1.1 k/uL (1.0-4.8); Lymphocytes % (A) 8 %; MCH 30.4 pg (25.0-35.0); MCHC 35.5 g/dL (31.0-37.0); MCV 85.8 fL (80.0-100.0); Mean Platelet Volume 7.9; Monocytes # (A) 0.6 k/uL (0-1.0); Monocytes % (A) 4 %; Neutrophils # (A) 11.1 k/uL (1.3-7.7); Neutrophils % (A) 86 %; Platelet Count 231 k/uL (150-450); RBC 5.38 m/uL (3.80-5.40); RDW 13.1 % (11.5-15.5); WBC 12.9 k/uL (3.8-10.6)
[2021-01-04 14:54] LABS: ALT 86 U/L (4-34); AST 164 U/L (14-36); African American GFR (CKD) >90 (>60 ml/min/1.73 sqM); Albumin 4.3 g/dL (3.5-5.0); Alkaline Phosphatase 160 U/L (38-126); Amylase 50 U/L (30-110); Anion Gap 9 mmol/L; Blood Urea Nitrogen 11 mg/dL (7-17); Calcium 9.3 mg/dL (8.4-10.2); Carbon Dioxide 24 mmol/L (22-30); Chloride 105 mmol/L (98-107); Glucose 117 mg/dL (74-99); Lipase 97 U/L (23-300); Non-African American GFR(CKD) >90 (>60 ml/min/1.73 sqM); Sodium 138 mmol/L (137-145); Total Bilirubin 1.1 mg/dL (0.2-1.3); Total Protein 7.6 g/dL (6.3-8.2)
[2021-01-04 15:13] LABS: Potassium 4.6 mmol/L (3.5-5.1)
[2021-01-04] MEDS ORDERED: MORPHINE SULFATE 2 MG/ML SYRINGE IVP ONE (15:20)
[2021-01-04 15:30] LABS: Appearance,Urine Cloudy (Clear); Bilirubin,Urine Negative (Negative); Blood,Urine Negative (Negative); Color,Urine Yellow; Glucose,Urine (UA) Negative (Negative); Ketones,Urine Negative (Negative); Leukocyte Esterase,Urine Negative (Negative); Mucus,Urine Rare /hpf; Nitrite,Urine Negative (Negative); Protein,Urine Negative (Negative); RBC,Urine 3 /hpf (0-5); Specific Gravity,Urine 1.022 (1.001-1.035); Squamous Epithelial Cell,Urine 4 /hpf (0-4); Urobilinogen,Urine <2.0 mg/dL (<2.0); WBC,Urine 3 /hpf (0-5)
--- NOTE | 2021-01-04 15:39 | US ---
EXAMINATION TYPE: US gallbladder DATE OF EXAM: 01/04/2021 COMPARISON: NONE CLINICAL HISTORY: pain. RUQ pain Nausea and vomiting EXAM MEASUREMENTS: Liver Length: 17.4 cm Gallbladder Wall: 0.2 cm CBD: 0.6 cm Right Kidney: 12.0 x 5.7 x 5.1 cm Pancreas: Tail obscured by overlying bowel gas Liver: Increased attenuation Gallbladder: Upper limits in size Evidence for sonographic Romo's sign: Yes CBD: wnl Right Kidney: No hydronephrosis or masses seen IMPRESSION: Echogenic shadowing foci seen in Gallbladder neck.
--- NOTE | 2021-01-04 16:10 | ED ---
Abdominal Pain HPI - General Chief Complaint: Abdominal Pain Stated Complaint: Abd pain Time Seen by Provider: 01/04/21 13:21 Source: patient, RN notes reviewed, old records reviewed Mode of arrival: ambulatory Limitations: no limitations - History of Present Illness Initial Comments: Patient is a 25-year-old female presenting to the emergency department with complaint of having a gallbladder attack that started early this morning. Patient states she has a known history of gallstones, was supposed to have her gallbladder removed earlier this month with Dr. Claros, however it was canceled secondary to the surgeon accepting the patient's insurance. She currently has an appointment to see a different surgeon in [place], this is not for a few weeks. Patient states about 7 AM this morning she started having some right upper quadrant pain and it has not been controlled with oral medication at home so she came in for evaluation. She denies any fevers or chills, she does have nausea, no vomiting or diarrhea. She denies any chest p ain or shortness of breath. She states this feel like her normal gallbladder attacks. She has no further complaints. Her vital signs are stable upon arrival. - Related Data Previous Rx's Medication Instructions Recorded Acetaminophen Tab [Tylenol] 650 mg PO Q6HR PRN tab 09/02/20 Pantoprazole [Protonix] 40 mg PO DAILY #30 tablet. 09/02/20 Allergies Allergy/AdvReac Type Severity Reaction Status Date / Time venom-honey bee Allergy Swelling Verified 01/04/21 12:01 [bee venom (honey bee)] Review of Systems ROS Statement: Those systems with pertinent positive or pertinent negative responses have been documented in the HPI. ROS Other: All systems not noted in ROS Statement are negative. Past Medical History Past Medical History: No Reported History Additional Past Medical History / Comment(s): Pancreatitis- 09/02/20. vagnial - 08/31/20 History of Any Multi-Drug Resistant Organisms: None Reported Past Surgical History: Adenoidectomy, Tonsillectomy Additional Past Surgical History / Comment(s): Tubs put in ears as an Past Anesthesia/Blood Transfusion Reactions: No Reported Reaction Past Psychological History: ADD/ADHD, Anxiety, Depression Smoking Status: Never smoker Past Alcohol Use History: None Reported Past Drug Use History: None Reported - Past Family History Father Family Medical History: AFIB Additional Family Medical History / Comment(s): Grandma has diabetes and hx of brain tumor General Exam - General Exam Comments Initial Comments: GENERAL: Patient is well-developed and well-nourished. Patient is nontoxic and in no acute distress. HEAD: Atraumatic, normocephalic. EYES: Pupils equal round and reactive to light, extraocular movements intact, sclera anicteric, conjunctiva are normal. Eyelids were unremarkable. ENT: Moist mucous membranes. NECK: Normal range of motion, supple without lymphadenopathy or JVD. LUNGS: Unlabored respirations. Breath sounds clear to auscultation bilaterally and equal. No wheezes rales or rhonchi. HEART: Regular rate and rhythm without murmurs, rubs or gallops. ABDOMEN: Soft, tender in the right upper quadrant, normoactive bowel sounds. No guarding, no rebound. No masses appreciated. MUSCULOSKELETAL: Normal extremities with adequate strength and normal range of motion, no pitting or edema. No clubbing or cyanosis. NEUROLOGICAL: Patient is alert and oriented x 3. SKIN: Warm, Dry, normal turgor, no rashes or lesions noted. Limitations: no limitations Course Vital Signs 01/04/21 01/04/21 12:01 16:19 Temperature 98 F Pulse Rate 70 81 Respiratory 18 20 Rate Blood Pressure 131/64 139/72 O2 Sat by Pulse 99 98 Oximetry Medical Decision Making - Medical Decision Making Patient is a 25-year-old female here with right upper quadrant pain started increasing this morning at 7 AM. She is known history of gallstones. Her vital signs are stable upon arrival. Patient's labs are stable, liver enzymes are slightly elevated but this is normal for her. Urine shows no evidence of i nfection, hCG is negative. Ultrasound reveals gallstones, no evidence for acute cholecystitis. Patient was given fluids and pain control and has been resting comfortably. I discussed with her to follow up with her surgeon. She is agreeable as planned care and she is stable for discharge. Return parameters were discussed with her and she verbalized understanding. Case discussed with Dr. Del Toro. - Lab Data Result diagrams: 01/04/21 14:16 01/04/21 14:16 Lab Results 01/04/21 01/04/21 01/04/21 Range/Units 14:16 14:16 15:11 WBC 12.9 H (3.8-10.6) k/uL RBC 5.38 (3.80-5.40) m/uL Hgb 16.4 H (11.4-16.0) gm/dL Hct 46.1 H (34.0-46.0) % MCV 85.8 (80.0-100.0) fL MCH 30.4 (25.0-35.0) pg MCHC 35.5 (31.0-37.0) g/dL RDW 13.1 (11.5-15.5) % Plt Count 231 (150-450) k/uL MPV 7.9 Neutrophils % 86 % Lymphocytes % 8 % Monocytes % 4 % Eosinophils % 0 % Basophils % 0 % Neutrophils # 11.1 H (1.3-7.7) k/uL Lymphocytes # 1.1 (1.0-4.8) k/uL Monocytes # 0.6 (0-1.0) k/uL Eosinophils # 0.1 (0-0.7) k/uL Basophils # 0.0 (0-0.2) k/uL Sodium 138 (137-145) mmol/L Potassium 4.6 (3.5-5.1) mmol/L Chloride 105 (98-107) mmol/L Carbon Dioxide 24 (22-30) mmol/L Anion Gap 9 mmol/L BUN 11 (7-17) mg/dL Creatinine 0.62 (0.52-1.04) mg/dL Est GFR (CKD-EPI)AfAm >90 (>60 ml/min/1.73 sqM) Est GFR (CKD-EPI)NonAf >90 (>60 ml/min/1.73 sqM) Glucose 117 H (74-99) mg/dL Calcium 9.3 (8.4-10.2) mg/dL Total Bilirubin 1.1 (0.2-1.3) mg/dL AST 164 H (14-36) U/L ALT 86 H (4-34) U/L Alkaline Phosphatase 160 H (38-126) U/L Total Protein 7.6 (6.3-8.2) g/dL Albumin 4.3 (3.5-5.0) g/dL Amylase 50 (30-110) U/L Lipase 97 (23-300) U/L Urine Color Yellow Urine Appearance Cloudy H (Clear) Urine pH 7.0 (5.0-8.0) Ur Specific [place] 1.022 (1.001-1.035) Urine Protein Negative (Negative) Urine Glucose (UA) Negative (Negative) Urine Ketones Negative (Negative) Urine Blood Negative (Negative) Urine Nitrite Negative (Negative) Urine Bilirubin Negative (Negative) Urine Urobilinogen <2.0 (<2.0) mg/dL Ur Leukocyte Esterase Negative (Negative) Urine RBC 3 (0-5) /hpf Urine WBC 3 (0-5) /hpf Ur Squamous Epith Cells 4 (0-4) /hpf Urine Mucus Rare H (None) /hpf Urine HCG, Qual (Not Detectd) 01/04/21 Range/Units 15:11 WBC (3.8-10.6) k/uL RBC (3.80-5.40) m/uL Hgb (11.4-16.0) gm/dL Hct (34.0-46.0) % MCV (80.0-100.0) fL MCH (25.0-35.0) pg MCHC (31.0-37.0) g/dL RDW (11.5-15.5) % Plt Count (150-450) k/uL MPV Neutrophils % % Lymphocytes % % Monocytes % % Eosinophils % % Basophils % % Neutrophils # (1.3-7.7) k/uL Lymphocytes # (1.0-4.8) k/uL Monocytes # (0-1.0) k/uL Eosinophils # (0-0.7) k/uL Basophils # (0-0.2) k/uL Sodium (137-145) mmol/L Potassium (3.5-5.1) mmol/L Chloride (98-107) mmol/L Carbon Dioxide (22-30) mmol/L Anion Gap mmol/L BUN (7-17) mg/dL Creatinine (0.52-1.04) mg/dL Est GFR (CKD-EPI)AfAm (>60 ml/min/1.73 sqM) Est GFR (CKD-EPI)NonAf (>60 ml/min/1.73 sqM) Glucose (74-99) mg/dL Calcium (8.4-10.2) mg/dL Total Bilirubin (0.2-1.3) mg/dL AST (14-36) U/L ALT (4-34) U/L Alkaline Phosphatase (38-126) U/L Total Protein (6.3-8.2) g/dL Albumin (3.5-5.0) g/dL Amylase (30-110) U/L Lipase (23-300) U/L Urine Color Urine Appearance (Clear) Urine pH (5.0-8.0) Ur Specific [place] (1.001-1.035) Urine Protein (Negative) Urine Glucose (UA) (Negative) Urine Ketones (Negative) Urine Blood (Negative) Urine Nitrite (Negative) Urine Bilirubin (Negative) Urine Urobilinogen (<2.0) mg/dL Ur Leukocyte Esterase (Negative) Urine RBC (0-5) /hpf Urine WBC (0-5) /hpf Ur Squamous Epith Cells (0-4) /hpf Urine Mucus (None) /hpf Urine HCG, Qual Not Detected (Not Detectd) Disposition Clinical Impression: Abdominal pain, Gallstones Disposition: HOME SELF-CARE Condition: Stable Instructions (If sedation given, give patient instructions): Gallstones (ED) Additional Instructions: Please return to the Emergency Department if symptoms worsen or any other concerns. Limit foods high in fat content, increase water intake. Please follow-up with your surgeon. Is patient prescribed a controlled substance at d/c from ED?: No Referrals: Raymon Ferguson DO [Primary Care Provider] - 1-2 days Time of Disposition: 16:10
[2021-01-04 16:21] VITALS: BP 139/72; PULSE 81; RESP 20
== END 2021-01-04 16:20 | disposition home or self-care (01) ==
LOC: EC 10:23
DX: R10.11 Right upper quadrant pain (principal); K80.80 Other cholelithiasis without obstruction; Z91.030 Bee allergy status
CPT/HCPCS: 36415; 80053; 82150; 83690; 85025; 81001; 81025; 76705; 99284; 96374; 96375; 96361; J2405; J1885; J2270

== ENCOUNTER 2021-03-05 00:27 | Inpatient (IN) | payer OTHER ==
[2021-03-05] MEDS ORDERED: ONDANSETRON 4 MG/2 ML VIAL IVP STA (00:56)
[2021-03-05] MEDS ORDERED: KETOROLAC 15 MG/ML 1 ML VIAL IVP STA (00:56)
[2021-03-05] MEDS ORDERED: SODIUM CHLORIDE 0.9% 1,000 ML IV ONE (00:56)
[2021-03-05 01:23] LABS: Basophils % (A) 0 %; Eosinophils # (A) 0.2 k/uL (0-0.7); Eosinophils % (A) 1 %; HCT 47.2 % (34.0-46.0); HGB 15.3 gm/dL (11.4-16.0); Lymphocytes # (A) 2.3 k/uL (1.0-4.8); Lymphocytes % (A) 18 %; MCH 30.1 pg (25.0-35.0); MCHC 32.5 g/dL (31.0-37.0); Mean Platelet Volume 7.6; Monocytes # (A) 0.5 k/uL (0-1.0); Monocytes % (A) 4 %; Neutrophils # (A) 9.5 k/uL (1.3-7.7); Neutrophils % (A) 75 %; Platelet Count 255 k/uL (150-450); RBC 5.09 m/uL (3.80-5.40); RDW 13.3 % (11.5-15.5); WBC 12.6 k/uL (3.8-10.6)
[2021-03-05 01:31] LABS: MCV 92.8 fL (80.0-100.0)
[2021-03-05 01:33] LABS: Appearance,Urine Clear (Clear); Bilirubin,Urine Negative (Negative); Blood,Urine Large (Negative); Color,Urine Light Red; Glucose,Urine (UA) Negative (Negative); Ketones,Urine Negative (Negative); Leukocyte Esterase,Urine Negative (Negative); Mucus,Urine Rare /hpf; Nitrite,Urine Negative (Negative); Protein,Urine 1+ (Negative); RBC,Urine >182 /hpf (0-5); Specific Gravity,Urine 1.027 (1.001-1.035); Squamous Epithelial Cell,Urine 3 /hpf (0-4); Urobilinogen,Urine <2.0 mg/dL (<2.0); WBC,Urine <1 /hpf (0-5)
[2021-03-05 01:36] LABS: ALT 22 U/L (4-34); AST 25 U/L (14-36); African American GFR (CKD) >90 (>60 ml/min/1.73 sqM); Albumin 4.2 g/dL (3.5-5.0); Alkaline Phosphatase 165 U/L (38-126); Anion Gap 8 mmol/L; Blood Urea Nitrogen 13 mg/dL (7-17); Calcium 9.3 mg/dL (8.4-10.2); Carbon Dioxide 25 mmol/L (22-30); Chloride 108 mmol/L (98-107); Glucose 111 mg/dL (74-99); Non-African American GFR(CKD) >90 (>60 ml/min/1.73 sqM); Potassium 4.1 mmol/L (3.5-5.1); Sodium 141 mmol/L (137-145); Total Bilirubin 0.5 mg/dL (0.2-1.3); Total Protein 7.1 g/dL (6.3-8.2)
[2021-03-05] MEDS ORDERED: NITROGLYCERIN-D5W PMX 50 MG in DEXTROSE/WATER 1 250ML.BAG IV ONE (01:48)
--- NOTE | 2021-03-05 01:48 | ED ---
Abdominal Pain HPI - General Chief Complaint: Abdominal Pain Stated Complaint: Abdominal Pain, vomiting Time Seen by Provider: 03/05/21 00:50 Source: patient, RN notes reviewed Mode of arrival: ambulatory Limitations: no limitations - History of Present Illness Initial Comments: This is a pleasant 25-year-old female with a known history of gallbladder d isease and cholelithiasis. She presents to the emergency room today complaining of a few hours of sharp right upper quadrant abdominal pain. Patient states that she chicken prior to the onset of pain. Patient states that this is consistent with what she has felt previously with her gallbladder pain. No headache, no fever or chills, no changes in vision or hearing, no sore throat or difficulty with speech, no neck pain, no chest pain or shortness of breath, , no changes in urination or bowel movements, no numbness or tingling, no extremity pain, no skin rashes or lesions.The case was discussed in detail with ED attending physician. Presentation, findings, treatment plan discussed in detail. Has been assessed by surgery. She states that she is going to have surgery done by Dr. Buckley at [facility] on April 27. - Related Data Previous Rx's Medication Instructions Recorded Acetaminophen Tab [Tylenol] 650 mg PO Q6HR PRN tab 09/02/20 Pantoprazole [Protonix] 40 mg PO DAILY #30 tablet. 09/02/20 Allergies Allergy/AdvReac Type Severity Reaction Status Date / Time venom-honey bee Allergy Swelling Verified 03/05/21 00:34 [bee venom (honey bee)] Review of Systems ROS Statement: Those systems with pertinent positive or pertinent negative responses have been documented in the HPI. ROS Other: All systems not noted in ROS Statement are negative. Past Medical History Past Medical History: No Reported History Additional Past Medical History / Comment(s): Pancreatitis- 09/02/20. vagnial - 08/31/20. gallstones History of Any Multi-Drug Resistant Organisms: None Reported Past Surgical History: Adenoidectomy, Ear Surgery, Tonsillectomy Additional Past Surgical History / Comment(s): Tubs put in ears as an infant Past Anesthesia/Blood Transfusion Reactions: No Reported Reaction Past Psychological History: ADD/ADHD, Anxiety, Depression Smoking Status: Never smoker Past Alcohol Use History: None Reported Past Drug Use History: None Reported - Past Family History Father Family Medical History: AFIB Additional Family Medical History / Comment(s): Grandma has diabetes and hx of brain tumor General Exam - General Exam Comments Initial Comments: Nontoxic appearing female in minimal distress. Patient does not appear to be ill or toxic. Limitations: no limitations General appearance: alert, in no apparent distress Head exam: Present: atraumatic, normocephalic, normal inspection Eye exam: Present: normal appearance, PERRL, EOMI. Absent: scleral icterus, conjunctival injection, periorbital swelling ENT exam: Present: normal exam, mucous membranes moist Neck exam: Present: normal inspection. Absent: tenderness, meningismus, lymphadenopathy Respiratory exam: Present: normal lung sounds bilaterally. Absent: respiratory distress, wheezes, rales, rhonchi, stridor Cardiovascular Exam: Present: regular rate, normal rhythm, normal heart sounds. Absent: systolic murmur, diastolic murmur, rubs, gallop, clicks GI/Abdominal exam: Present: soft, normal bowel sounds. Absent: distended, tenderness, guarding, rebound, rigid Extremities exam: Present: normal inspection, full ROM, normal capillary refill. Absent: tenderness, pedal edema, joint swelling, calf tenderness Back exam: Present: normal inspection Neurological exam: Present: alert, oriented X3, CN II-XII intact Psychiatric exam: Present: normal affect, normal mood Skin exam: Present: warm, dry, intact, normal color. Absent: rash Course Vital Signs 03/05/21 00:30 Temperature 98.3 F Pulse Rate 78 Respiratory 20 Rate Blood Pressure 122/80 O2 Sat by Pulse 98 Oximetry - Reevaluation(s) Reevaluation #1: 03/05/21 03:24 Medical record is reviewed Symptoms are improved --patient still having some pain Patient is informed of results and questions answered Patient in no distress Medical Decision Making - Medical Decision Making Patient presents to symptomology consistent with right upper quadrant pain secondary to probable biliary colic. Abdominal labs ordered. X-ray ordered. Patient was given a dose of ketorolac and Zofran. Plan for reevaluation. I believe this unlikely be cardiopulmonary related. Unlikely to be genitourinary related. Intra-abdominal inflammatory versus infectious etiologies possible. the patient is breast-feeding her child but states she has milk saved. Patient requesting pain medication. The case was discussed in detail with ED attending physician. Presentation, findings, treatment plan discussed in detail. Patient admitted to the hospital under Dr. Ferguson - Lab Data Result diagrams: 03/05/21 01:14 03/05/21 01:14 Lab Results 03/05/21 03/05/21 03/05/21 Range/Units 01:14 01:14 01:14 WBC 12.6 H (3.8-10.6) k/uL RBC 5.09 (3.80-5.40) m/uL Hgb 15.3 (11.4-16.0) gm/dL Hct 47.2 H (34.0-46.0) % MCV 92.8 D (80.0-100.0) fL MCH 30.1 (25.0-35.0) pg MCHC 32.5 (31.0-37.0) g/dL RDW 13.3 (11.5-15.5) % Plt Count 255 (150-450) k/uL MPV 7.6 Neutrophils % 75 % Lymphocytes % 18 % Monocytes % 4 % Eosinophils % 1 % Basophils % 0 % Neutrophils # 9.5 H (1.3-7.7) k/uL Lymphocytes # 2.3 (1.0-4.8) k/uL Monocytes # 0.5 (0-1.0) k/uL Eosinophils # 0.2 (0-0.7) k/uL Basophils # 0.0 (0-0.2) k/uL Sodium (137-145) mmol/L Potassium (3.5-5.1) mmol/L Chloride (98-107) mmol/L Carbon Dioxide (22-30) mmol/L Anion Gap mmol/L BUN (7-17) mg/dL Creatinine (0.52-1.04) mg/dL Est GFR (CKD-EPI)AfAm (>60 ml/min/1.73 sqM) Est GFR (CKD-EPI)NonAf (>60 ml/min/1.73 sqM) Glucose (74-99) mg/dL Calcium (8.4-10.2) mg/dL Total Bilirubin (0.2-1.3) mg/dL AST (14-36) U/L ALT (4-34) U/L Alkaline Phosphatase (38-126) U/L Total Protein (6.3-8.2) g/dL Albumin (3.5-5.0) g/dL Lipase (23-300) U/L Urine Color Light Red Urine Appearance Clear (Clear) Urine pH 6.0 (5.0-8.0) Ur Specific [place] 1.027 (1.001-1.035) Urine Protein 1+ H (Negative) Urine Glucose (UA) Negative (Negative) Urine Ketones Negative (Negative) Urine Blood Large H (Negative) Urine Nitrite Negative (Negative) Urine Bilirubin Negative (Negative) Urine Urobilinogen <2.0 (<2.0) mg/dL Ur Leukocyte Esterase Negative (Negative) Urine RBC >182 H (0-5) /hpf Urine WBC <1 (0-5) /hpf Ur Squamous Epith Cells 3 (0-4) /hpf Urine Mucus Rare H (None) /hpf Urine HCG, Qual Not Detected (Not Detectd) 03/05/21 Range/Units 01:14 WBC (3.8-10.6) k/uL RBC (3.80-5.40) m/uL Hgb (11.4-16.0) gm/dL Hct (34.0-46.0) % MCV (80.0-100.0) fL MCH (25.0-35.0) pg MCHC (31.0-37.0) g/dL RDW (11.5-15.5) % Plt Count (150-450) k/uL MPV Neutrophils % % Lymphocytes % % Monocytes % % Eosinophils % % Basophils % % Neutrophils # (1.3-7.7) k/uL Lymphocytes # (1.0-4.8) k/uL Monocytes # (0-1.0) k/uL Eosinophils # (0-0.7) k/uL Basophils # (0-0.2) k/uL Sodium 141 (137-145) mmol/L Potassium 4.1 (3.5-5.1) mmol/L Chloride 108 H (98-107) mmol/L Carbon Dioxide 25 (22-30) mmol/L Anion Gap 8 mmol/L BUN 13 (7-17) mg/dL Creatinine 0.79 (0.52-1.04) mg/dL Est GFR (CKD-EPI)AfAm >90 (>60 ml/min/1.73 sqM) Est GFR (CKD-EPI)NonAf >90 (>60 ml/min/1.73 sqM) Glucose 111 H (74-99) mg/dL Calcium 9.3 (8.4-10.2) mg/dL Total Bilirubin 0.5 (0.2-1.3) mg/dL AST 25 (14-36) U/L ALT 22 (4-34) U/L Alkaline Phosphatase 165 H (38-126) U/L Total Protein 7.1 (6.3-8.2) g/dL Albumin 4.2 (3.5-5.0) g/dL Lipase 8263 H (23-300) U/L Urine Color Urine Appearance (Clear) Urine pH (5.0-8.0) Ur Specific [place] (1.001-1.035) Urine Protein (Negative) Urine Glucose (UA) (Negative) Urine Ketones (Negative) Urine Blood (Negative) Urine Nitrite (Negative) Urine Bilirubin (Negative) Urine Urobilinogen (<2.0) mg/dL Ur Leukocyte Esterase (Negative) Urine RBC (0-5) /hpf Urine WBC (0-5) /hpf Ur Squamous Epith Cells (0-4) /hpf Urine Mucus (None) /hpf Urine HCG, Qual (Not Detectd) Disposition Clinical Impression: Acute pancreatitis Referrals: Raymon Ferguson DO [Primary Care Provider] - 1-2 days
[2021-03-05 02:05] LABS: Lipase 8263 U/L (23-300)
[2021-03-05] MEDS ORDERED: HYDROmorphone 1 MG/ML 1 ML SYRINGE IVP STA (02:07)
--- NOTE | 2021-03-05 02:54 | CT ---
EXAMINATION TYPE: CT abdomen pelvis w con DATE OF EXAM: 03/05/2021 COMPARISON: 09/02/2020 HISTORY: sharp right flank pain/RUQ. history of pancreatitis and also is scheduled to get gall bladd er removed 04/2021 CT DLP: 2411.4 mGycm Automated exposure control for dose reduction was used. CONTRAST: Performed with IV Contrast, patient injected with 100ml mL of Isovue 300. Images obtained from the diaphragm to the floor the pelvis. Lung bases are clear. There is no pleural effusion. Heart size is normal. There is no pericardial eff usion. Liver spleen stomach pancreas and gallbladder appear intact. Bile ducts are nondilated. There is no adrenal mass. Kidneys show satisfactory contrast opacification. There is no hydronephrosi s. Delayed images show normal renal excretion. There is no retroperitoneal adenopathy. Appendix is po sterior and appears normal. The bladder distends smoothly. There is no inguinal hernia. There is no f ree fluid in the pelvis. Uterus is anteverted. There is IUD which is in the lower uterine segment. Th e lumbar vertebrae have normal alignment. There is no compression fracture. The bony pelvis is intact . Hip joints are intact. IMPRESSION: Normal appendix. The IUD appears to be in the lower uterine segment and not in the uterine fundus. No renal stone or obstruction. No dilated ducts.
[2021-03-05] MEDS ORDERED: HYDROmorphone 0.5 MG/0.5 ML SYRINGE IVP PRN (03:25)
[2021-03-05] MEDS ORDERED: ONDANSETRON 4 MG/2 ML VIAL IVP PRN (03:25)
[2021-03-05] MEDS ORDERED: NALOXONE 0.4 MG/ML 1 ML VIAL IV PRN (03:25)
[2021-03-05] MEDS ORDERED: HYDROmorphone 1 MG/ML 1 ML SYRINGE IVP PRN (03:25)
[2021-03-05] MEDS ORDERED: LORazepam 2 MG/ML INJ IV PRN (03:29)
[2021-03-05] MEDS: SODIUM CHLORIDE 0.9% 1,000 ML IV SCH ×4 (04:25→20:57)
--- NOTE | 2021-03-05 09:44 | US ---
EXAMINATION TYPE: US abdomen limited DATE OF EXAM: 03/05/2021 COMPARISON: US GB 01/04/2021 CT 03/05/2021 CLINICAL HISTORY: attention RUQ. Acute pancreatitis; hx of gallstones EXAM MEASUREMENTS: Liver Length: 18.4 cm, may under represent the length of the liver Gallbladder Wall: 0.24 cm CBD: 0.46 cm Right Kidney: 11.3 x 4.9 x 5.5 cm Pancreas: Limited visualization; appears slightly hypoechoic Liver: Increased attenuation; ultrasound poorly penetrates the liver parenchyma Gallbladder: Multiple echogenic foci, questionable pericholecystic fluid seen on CT is not seen on u ltrasound Evidence for sonographic Romo's sign: Yes CBD: Appears wnl Right Kidney: No hydronephrosis or masses seen IMPRESSION: There are limitations to the exam. Correlate for possible hepatocellular disease, there i s hepatomegaly. Cholelithiasis. Positive sonographic Romo's sign.
--- NOTE | 2021-03-05 10:04 | P.HPIM ---
History of Present Illness H&P Date: 03/05/21 25-year-old female with past medical history of pancreatitis in August of last year patient did have also another flare of pancreatitis exact etiology of the pancreatitis was not very clear but the patient was scheduled to have cholecystectomy as an outpatient Patient begin to have abdominal pain and was admitted again with acute pancreatitis Review of systems and systems has been reviewed all negative and positive findings as per history of present illness Constitutional: No acute distress, conversant, pleasant Eyes: Anicteric sclerae, moist conjunctiva, no lid-lag PERRLA ENMT: NC/AT Oropharynx clear, no erythema, exudates Neck: Supple, FROM, no masses, or JVD No carotid bruits No thyromegaly Lungs: Clear to auscultation Clear to percussion Normal respiratory effort, no accessory muscle use Cardiovascular: Heart regular in rate and rhythm, No murmurs, gallops, or rubs No peripheral edema Abdominal: Soft Nontender, no guarding, rebound or rigidity Abdomen moving with respiration Normoactive bowel sounds No hepatomegaly, No splenomegaly No palpable mass No abdominal wall hernia noted Skin: Normal temperature, tone, texture, turgor No induration No subcutaneous n odules No rash, lesions No ulcers Extremities: No digital cyanosis No clubbing Pedal pulses intact and symmetrical Radial pulses intact and symmetrical Normal gait and station No calf tenderness Psychiatric:Alert and oriented to person, place and time Appropriate affect Intact judgement Neuro: Muscles Strength 5/5 in all 4 extremities Sensation to light touch grossly present throughout Cranial nerves II-XII grossly intact No focal sensory deficits Acute pancreatitis likely biliary in origin ultrasound of the gallbladder showed cholelithiasis will consult surgery We'll keep the patient nothing by mouth Continue IV hydration Continue pain control DVT and GI prophylaxis Past Medical History Past Medical History: No Reported History Additional Past Medical History / Comment(s): Pancreatitis- 09/02/20. vagnial - 08/31/20. gallstones History of Any Multi-Drug Resistant Organisms: None Reported Past Surgical History: Adenoidectomy, Ear Surgery, Tonsillectomy Additional Past Surgical History / Comment(s): Tubs put in ears as an Past Anesthesia/Blood Transfusion Reactions: No Reported Reaction Past Psychological History: ADD/ADHD, Anxiety, Depression Smoking Status: Vaper Past Alcohol Use History: None Reported Past Drug Use History: None Reported - Past Family History Father Family Medical History: AFIB Additional Family Medical History / Comment(s): Grandma has diabetes and hx of brain tumor Medications and Allergies Home Medications Medication Instructions Recorded Confirmed Type No Known Home Medications 03/05/21 03/05/21 History Allergies Allergy/AdvReac Type Severity Reaction Status Date / Time venom-honey bee Allergy Swelling Verified 03/05/21 06:49 [bee venom (honey bee)] Physical Exam Vitals: Vital Signs Temp Pulse Pulse Resp BP BP Pulse Ox 03/05/21 08:00 98.1 F 80 16 114/75 97 03/05/21 06:02 98.1 F 84 16 123/75 96 03/05/21 03:45 92 19 141/80 98 03/05/21 00:30 98.3 F 78 20 122/80 98 Intake and Output 03/04/21 03/05/21 03/05/21 22:59 06:59 14:59 Other: # Voids 1 Weight 123.831 kg Results CBC & Chem 7: 03/05/21 01:14 03/05/21 01:14 Labs: Abnormal Lab Results - Last 24 Hours (Table) 03/05/21 03/05/21 03/05/21 Range/Units 01:14 01:14 01:14 WBC 12.6 H (3.8-10.6) k/uL Hct 47.2 H (34.0-46.0) % Neutrophils # 9.5 H (1.3-7.7) k/uL Chloride 108 H (98-107) mmol/L Glucose 111 H (74-99) mg/dL Alkaline Phosphatase 165 H (38-126) U/L Lipase 8263 H (23-300) U/L Urine Protein 1+ H (Negative) Urine Blood Large H (Negative) Urine RBC >182 H (0-5) /hpf Urine Mucus Rare H (None) /hpf Thrombosis Risk Factor Assmnt - Choose All That Apply Any of the Below Risk Factors Present?: No
--- NOTE | 2021-03-05 12:47 | P.GSCN ---
History of Present Illness Consult date: 03/05/21 Reason for Consult: Abdominal pain, presumed recurrent gallstone pancreatitis History of present illness: Patient is a 25-year-old lady who presented to the [facility] emergency department in the safety specialist hours of 03/05/2021 with chief complaint of present 24 hours of progressive epigastric abdominal pain with radiation of the right upper quadrant and back and flank. She has had multiple similar episodes over the past 12 months or so. She tells me things started late in her with similar pains, sometimes postprandial and sometimes not associated with meals. She delivered her child this past July or August. Since then she has been in the hospital more than 5 times with diagnoses of biliary colic and gallstone pancreatitis. She does not recall having ever been diagnosed with jaundice or biliary obstruction. The pains can last anywhere from a few hours to all day, typically accompanied by nausea and emesis without signs of GI bleeding. She's never undergone any manner of endoscopy, has never been diagnosed with peptic ulcer disease or H. pylori infection, has no known personal history of inflammatory bowel disease. Apparently there were some insurance issues with respect to her pursuing an elective cholecystectomy locally, she was subsequently referred to [facility] and arrangements have been made for cholecystectomy this coming April. Laboratory studies on presentation here reveal a mild leukocytosis, elevation of lipase over 8000, no signs of jaundice, mild elevation of alkaline phosphatase, and signs of hematuria on urinalysis. Right upper quadrant ultrasound yielded suboptimal imaging, there is increased attenuation at the liver, multiple echogenic foci within the gallbladder suspicious of gallstone burden, no evidence of pericholecystic fluid, no evidence of dilation of common duct, and gallbladder wall thickness of 2.4 mm. Computed tomography scan of abdomen and pelvis shows no evidence of bowel obstruction, no evidence of ventral or inguinal hernia, retained gastric contents, a slightly enlarged liver, no inflammatory changes about the gallbladder pancreatitis. An IUD is in place. No kidney stone seen. An MRCP has been ordered and is pending. Patient's presently feeling a bit better than on initial presentation, remains nothing by mouth, IV fluids are running. Still has some modest epigastric pains predominantly with pressure, is more comfortable when sitting upright, pain exacerbated when lying flat. Review of Systems All systems: negative - Constitutional Reports as per HPI Past Medical History Past Medical History: No Reported History Additional Past Medical History / Comment(s): Pancreatitis- 09/02/20. vagnial - 08/31/20. gallstones History of Any Multi-Drug Resistant Organisms: None Reported Past Surgical History: Adenoidectomy, Ear Surgery, Tonsillectomy Additional Past Surgical History / Comment(s): Tubs put in ears as an Past Anesthesia/Blood Transfusion Reactions: No Reported Reaction Past Psychological History: ADD/ADHD, Anxiety, Depression Smoking Status: Vaper Past Alcohol Use History: None Reported Past Drug Use History: None Reported - Past Family History Father Family Medical History: AFIB Additional Family Medical History / Comment(s): Grandma has diabetes and hx of brain tumor Medications and Allergies Home Medications Medication Instructions Recorded Confirmed Type No Known Home Medications 03/05/21 03/05/21 History Allergies Allergy/AdvReac Type Severity Reaction Status Date / Time venom-honey bee Allergy Swelling Verified 03/05/21 06:49 [bee venom (honey bee)] Surgical - Exam Osteopathic Statement: *. No significant issues noted on an osteopathic structural exam other than those noted in the History and Physical/Consult. Vital Signs Temp Pulse Resp BP Pulse Ox 98.3 F 78 20 122/80 98 03/05/21 00:30 03/05/21 00:30 03/05/21 00:30 03/05/21 00:30 03/05/21 00:30 - General well developed, no distress - Eyes PERRL - ENT normal pinna - Respiratory normal expansion, normal respiratory effort, clear to auscultation - Cardiovascular Rhythm: regular - Abdomen Mild to moderate epigastric and focal right upper quadrant tenderness. No guarding, rebound or distention. No clinical signs of jaundice. No evidence of peritonitis. Abdomen: soft Hernia: none Results - Labs 03/05/21 01:14 03/05/21 01:14 Abnormal Lab Results - Last 24 Hours (Table) 03/05/21 03/05/21 03/05/21 Range/Units 01:14 01:14 01:14 WBC 12.6 H (3.8-10.6) k/uL Hct 47.2 H (34.0-46.0) % Neutrophils # 9.5 H (1.3-7.7) k/uL Chloride 108 H (98-107) mmol/L Glucose 111 H (74-99) mg/dL Alkaline Phosphatase 165 H (38-126) U/L Lipase 8263 H (23-300) U/L Urine Protein 1+ H (Negative) Urine Blood Large H (Negative) Urine RBC >182 H (0-5) /hpf Urine Mucus Rare H (None) /hpf Diabetes panel 03/05/21 Range/Units 01:14 Sodium 141 (137-145) mmol/L Potassium 4.1 (3.5-5.1) mmol/L Chloride 108 H (98-107) mmol/L Carbon Dioxide 25 (22-30) mmol/L BUN 13 (7-17) mg/dL Creatinine 0.79 (0.52-1.04) mg/dL Glucose 111 H (74-99) mg/dL Calcium 9.3 (8.4-10.2) mg/dL AST 25 (14-36) U/L ALT 22 (4-34) U/L Alkaline Phosphatase 165 H (38-126) U/L Total Protein 7.1 (6.3-8.2) g/dL Albumin 4.2 (3.5-5.0) g/dL Calcium panel 03/05/21 Range/Units 01:14 Calcium 9.3 (8.4-10.2) mg/dL Albumin 4.2 (3.5-5.0) g/dL Pituitary panel 03/05/21 Range/Units 01:14 Sodium 141 (137-145) mmol/L Potassium 4.1 (3.5-5.1) mmol/L Chloride 108 H (98-107) mmol/L Carbon Dioxide 25 (22-30) mmol/L BUN 13 (7-17) mg/dL Creatinine 0.79 (0.52-1.04) mg/dL Glucose 111 H (74-99) mg/dL Calcium 9.3 (8.4-10.2) mg/dL Adrenal panel 03/05/21 Range/Units 01:14 Sodium 141 (137-145) mmol/L Potassium 4.1 (3.5-5.1) mmol/L Chloride 108 H (98-107) mmol/L Carbon Dioxide 25 (22-30) mmol/L BUN 13 (7-17) mg/dL Creatinine 0.79 (0.52-1.04) mg/dL Glucose 111 H (74-99) mg/dL Calcium 9.3 (8.4-10.2) mg/dL Total Bilirubin 0.5 (0.2-1.3) mg/dL AST 25 (14-36) U/L ALT 22 (4-34) U/L Alkaline Phosphatase 165 H (38-126) U/L Total Protein 7.1 (6.3-8.2) g/dL Albumin 4.2 (3.5-5.0) g/dL Assessment and Plan Assessment: Impression: 1) 25-year-old lady with a clinical history, laboratory findings, and imaging consistent with recurrent gallstone pancreatitis. Improving with bowel rest and IV fluids. No evidence of jaundice on labs, common duct within normal limits. Imaging findings not suggestive of an acute cholecystitis. 2) Suspect a degree of fatty liver disease visualized on ultrasound. 3) Morbid obesity with BMI of 46.9. Plan: Plan: 1) Patient was advised that some with gallstone pancreatitis will typically endeavor to get the gallbladder removed prior to discharge from the hospital, once clinical signs of pancreatitis have subsided. It would seem that she's been having recurrent bouts of pain and hospitalization for pancreatitis over the past several months. MRI of the abdomen is as been ordered, will review those findings prior to further decision making. In the meantime maintain patient nothing by mouth with IV fluids for pancreatitis. I don't see an indication for antibiotics presently. She was further counseled that if she is more comfortable pursuing surgery with her risk and insurance consultant at [facility] on an outpatient basis that would be acceptable, but there is no way to ensure that she wouldn't have another flareup of pancreatitis after discharge. 2) If we end up pursuing cholecystectomy this admission will anticipate a Mani- Cut or wedge liver biopsy if there is any apparent abnormality seen. Time with Patient: Greater than 30
--- NOTE | 2021-03-05 15:24 | MR ---
EXAMINATION TYPE: MR pancreas / mrcp wo con DATE OF EXAM: 03/05/2021 COMPARISON: CT abdomen and pelvis from earlier today and older study September 02, 2020. Ultrasound abdome n Limited earlier today HISTORY: Severe right-sided pain since last night. Acute pancreatitis. Standard multiplanar, multisequence MRI departmental protocol Multiplanar, multisequence images of the abdomen were acquired without contrast. Diffusion weighted i maging was performed. Thin and thick slice MRCP imaging performed on the MRI scanner. FINDINGS: Liver/gallbladder/pancreas/biliary system: The liver is normal in size without concerning solid or cy stic mass. The pancreas measures normal in size without concerning solid or cystic mass. No significa nt surrounding fluid or fat stranding. Gallbladder shows small intraluminal dependent gallstones towa rds the gallbladder neck with prominent fold. No abnormal gallbladder wall thickening or surrounding fluid. Pancreatic duct and common bile duct is not well visualized due to poor distention, common chuy e duct visualization is limited due to adjacent prominent fluid-filled gallbladder neck. No obvious f illing defect is seen best on coronal T2-weighted images 17 through 19 to the ampulla. Pancreatic carol t is within normal limits. No suspicious intrahepatic biliary dilatation noted. Other: The lung bases are grossly clear. The spleen and both adrenal glands appear within normal limi ts. No concerning renal mass or hydronephrosis. No suspicious bowel dilatation. No intra-abdominal as cites. Visualized osseous structures are intact. IMPRESSION: Multiple small gallstones without secondary MRI evidence for acute cholecystitis. No susp icious biliary or pancreatic ductal dilatation. No intraluminal CBD stone. No MRI evidence for compli cation related to acute pancreatitis.
[2021-03-05 20:27] VITALS: RESP 18
[2021-03-06] MEDS: SODIUM CHLORIDE 0.9% 1,000 ML IV SCH (08:58)
[2021-03-06 09:06] LABS: Basophils # (A) 0.05 X 10*3/uL (0.00-0.10); Basophils % (A) 0.6 %; Eosinophils # (A) 0.11 X 10*3/uL (0.04-0.35); Eosinophils % (A) 1.4 %; HCT 40.3 % (37.2-46.3); HGB 12.8 g/dL (12.0-15.0); Lymphocytes # (A) 2.28 X 10*3/uL (0.90-5.00); MCH 29.6 pg (27.0-32.0); MCHC 31.8 g/dL (32.0-37.0); MCV 93.3 fL (80.0-97.0); Mean Platelet Volume 10.5 fL (9.5-12.2); Monocytes # (A) 0.67 X 10*3/uL (0.20-1.00); Monocytes % (A) 8.5 %; Neutrophils # (A) 4.73 X 10*3/uL (1.80-7.70); Neutrophils % (A) 60.2 %; Platelet Count 196 X 10*3/uL (140-440); RBC 4.32 X 10*6/uL (4.10-5.20); RDW 13.1 % (11.5-14.5); WBC 7.86 X 10*3/uL (4.50-10.00)
[2021-03-06 09:15] VITALS: BP 111/78; PULSE 71; TEMP 98.2
[2021-03-06 10:24] LABS: African American GFR (CKD) 138.9 (60.0-200.0); Albumin 3.4 g/dL (3.8-4.9); Albumin/Globulin Ratio 1.85 (1.60-3.17); Anion Gap 13.6 mmol/L (10.00-18.00); BUN/Creat Ratio 15.11 Ratio (12.00-20.00); Blood Urea Nitrogen 10.5 mg/dL (9.0-27.0); Calcium 8.1 mg/dL (8.7-10.3); Globulin 1.8 g/dL (1.6-3.3); Non-African American GFR(CKD) 119.9 (60.0-200.0); Phosphorus 2.7 mg/dL (2.4-5.1); Potassium 4.3 mmol/L (3.5-5.5); Total Bilirubin 0.3 mg/dL (0.30-1.20); Total Protein 5.3 g/dL (6.2-8.2)
--- NOTE | 2021-03-06 11:18 | P.PN ---
Progress Note - Text Progress Note Date: 03/06/21 Patient seen and examined at bedside. Presenting symptoms of abdominal pain and nausea have completely subsided overnight. She remains nothing by mouth, starting to feel hungry. Denies fever or chills. Eager to go home. She tells me that pretty soon as intermittent nobody available to care for her . MRI of the abdomen was completed yesterday showing cholelithiasis but no evidence of choledocholithiasis or obstruction. No abnormality of the pancreas seen. WBC 7.82, hemoglobin 12.8, platelet count 196. Serum sodium 143, potassium 4.3, CO2 of 19, creatinine 0.7, glucose of 83. AST of 14, a LT of 18, alkaline phosphatase mildly elevated at 128. Amylase and lipase have normalized at 59 and 45 respectively. Temperature 98.2F, heart rate 71, blood pressure 111/78, respiratory rate 18 and 90% O2 saturation on room air. Prevascular compartment a rhythm are regular without appreciable murmur. Respiratory: Lungs are clear to auscultation bilaterally without appreciable crackles wheezes or rhonchi. Abdominal exam: Abdomen is soft, nontender to palpation, no guarding, rebound, or distention. No clinical signs of jaundice. Extremities: Distal extremities are warm and well-perfused. Impression: 1) 25-year-old lady with what would appear to be presenting episode of gallstone pancreatitis, multiple similar episodes in the past as well as biliary colic. No clinical or radiographic signs of acute cholecystitis. No evidence of jaundice or biliary obstruction. Gallstone burden demonstrated on ultrasound and MRI. Clinically resolving with IV fluids and bowel rest. Plan: 1) is the patient's presenting symptoms of pancreatitis are resolving I offered her cholecystectomy today. She tells me that she really needs to get a home to help care for her child and would rather try and see things through to her outpatient surgical date April 27. She was again advised that we can't guarantee that she will have another bout of gallstone pancreatitis in the interim. I'd suggestive avoiding dietary triggers the may lead to a gallbladder attack such as fatty and greasy foods. Will advance her to a full liquid diet today, she has no issues with tolerance she should be okay for discharge from a surgical standpoint this afternoon.
--- NOTE | 2021-03-06 11:42 | P.DS ---
Providers Date of admission: 03/05/21 11:25 Expected date of discharge: 03/06/21 Attending physician: Loraine Rivera MD Consults: 03/05/21 09:36 Consult Physician Routine Consulting Provider: London Nicole Consult Reason/Comments: abdominal pain Do you want consulting provider notified?: Yes Primary care physician: Raymon Ferguson [facility] Course: 25-year-old female admitted to the hospital with acute pancreatitis likely biliary in origin Patient did have at least 2 flares of acute pancreatitis in the last few months Patient feels much better today wants to go home and advised to stay another night but prefers to go home denies any abdominal pain no vomiting Patient wants surgery to be done as an outpatient Constitutional: No acute distress, conversant, pleasant Eyes: Anicteric sclerae, moist conjunctiva, no lid-lag PERRLA ENMT: NC/AT Oropharynx clear, no erythema, exudates Neck: Supple, FROM, no masses, or JVD No carotid bruits No thyromegaly Lungs: Clear to auscultation Clear to percussion Normal respiratory effort, no accessory muscle use Cardiovascular: Heart regular in rate and rhythm, No murmurs, gallops, or rubs No peripheral edema Abdominal: Soft Nontender, no guarding, rebound or rigidity Abdomen moving with respiration Normoactive bowel sounds No hepatomegaly, No splenomegaly No palpable mass No abdominal wall hernia noted Skin: Normal temperature, tone, texture, turgor No induration No subcutaneous nodules No rash, lesions No ulcers Extremities: No digital cyanosis No clubbing Pedal pulses intact and symmetrical Radial pulses intact and symmetrical Normal gait and station No calf tenderness Psychiatric:Alert and oriented to person, place and time Appropriate affect Intact judgement Neuro: Muscles Strength 5/5 in all 4 extremities Sensation to light touch grossly present throughout Cranial nerves II-XII grossly intact No focal sensory deficits Acute pancreatitis likely biliary in origin improved patient to follow-up with primary care physician and surgery for outpatient cholecystectomy Plan - Discharge Summary Discharge Rx Participant: No New Discharge Prescriptions: No Action No Known Home Medications Discharge Medication List No Known Home Medications 03/05/21 [History] Follow up Appointment(s)/Referral(s): Raymon Ferguson DO [Primary Care Provider] - 1-2 days Discharge Disposition: HOME SELF-CARE
== END 2021-03-06 13:59 | disposition home or self-care (01) | DRG 439 ==
LOC: EC 00:27 → 4SSUR 03:33 → OBSVTOIN 11:25
PROVIDERS: ADMIT Internal Medicine; ATTEND Internal Medicine
DX: K85.10 Biliary acute pancreatitis without necrosis or infection (principal); Z68.42 Body mass index [BMI] 45.0-49.9, adult; E66.01 Morbid (severe) obesity due to excess calories; K80.20 Calculus of gallbladder without cholecystitis without obstruction; F90.9 Attention-deficit hyperactivity disorder, unspecified type; F41.9 Anxiety disorder, unspecified; F17.290 Nicotine dependence, other tobacco product, uncomplicated; F32.A Depression, unspecified; Z20.822 Contact with and (suspected) exposure to COVID-19; Z91.030 Bee allergy status
CPT/HCPCS: 36415; 74177; 74181; 76705; 80053; 81001; 81025; 82150; 83615; 83690; 83735; 84100; 85025; 87635; 96361; 96374; 96375; 96376; 99285